=== PATIENT | female | born 1965 | race Two or more races ===

== ENCOUNTER 2024-09-03 09:57 | Outpatient (AMB) | payer MEDICAID, SELFPAY ==
[2024-09-03 10:21] VITALS: BP 108/71; PULSE 92; RESP 18; TEMP 35.9; O2SAT 93; BMI 25.6
--- NOTE | 2024-09-03 10:21 | PD.GSCLVISIT ---
Vital Signs - [facility] 09/03/24 10:21 Height 1.52 m Height Method Stated Weight 59.591 kg Weight Measurement Method Standing Scale BMI 25.6 BP 108/71 Blood Pressure Source Automatic Cuff Blood Pressure Location Right Upper Arm Position Sitting Respiration 18 Pulse 92 Pulse Source Monitor Temp 96.6 F L Temp Source Temporal Artery Scan Pulse Oximetry (%) 93 L Oxygen Delivery Method Room Air Med/Allergies Allergies & Medications Allergies ibuprofen Allergy (Severe, Verified 09/03/24 10:22) Gastrointestinal Upset Medication Reconciliation gabapentin 100 mg capsule 800 mg PO TID 02/15/19 [History Confirmed 09/03/24] albuterol sulfate 90 mcg/actuation aerosol inhaler 2 puff inhalation Q4HR PRN Wheezing 08/19/22 [History Confirmed 09/03/24] buprenorphine 7.5 mcg/hour weekly transdermal patch (Butrans) 7.5 mcg topical QWEEK 05/31/24 [History Confirmed 09/03/24] ergocalciferol (vitamin D2) 1,250 mcg (50,000 unit) capsule 50,000 unit PO QWEEK 05/31/24 [History Confirmed 09/03/24] escitalopram oxalate 10 mg tablet 10 mg PO QDAY 05/31/24 [History Confirmed 09/03/24] fenofibrate 160 mg tablet 160 mg PO DAILY 05/31/24 [History Confirmed 09/03/24] levothyroxine 25 mcg tablet 25 mcg PO QDAY 05/31/24 [History Confirmed 09/03/24] montelukast 10 mg tablet 10 mg PO QPM 05/31/24 [History Confirmed 09/03/24] pantoprazole 40 mg tablet,delayed release 40 mg PO QDAY 05/31/24 [History Confirmed 09/03/24] terbinafine HCl 250 mg tablet 250 mg PO DAILY 05/31/24 [History Confirmed 09/03/24] amitriptyline 75 mg tablet 75 mg PO HS 06/01/24 [History Confirmed 09/03/24] empagliflozin 10 mg tablet (Jardiance) 10 mg PO QAM #30 tabs 06/03/24 [Rx Confirmed 09/03/24] insulin glargine 100 unit/mL (3 mL) subcutaneous pen, sensor (Basaglar Tempo Pen (U-100) Insulin) 10 unit (0.1 mL) subcut QPM #15 mL 06/03/24 [Rx Confirmed 09/03/24] aspirin 81 mg tablet 81 mg PO QDAY 06/12/24 [History Confirmed 09/03/24] docusate sodium 100 mg capsule (Colace) 100 mg PO BID 06/12/24 [History Confirmed 09/03/24] famotidine 40 mg tablet 40 mg PO QDAY 06/12/24 [History Confirmed 09/03/24] furosemide 40 mg tablet 20 mg PO HS Edema 06/12/24 [History Confirmed 09/03/24] losartan 25 mg tablet 25 mg PO HS 06/12/24 [History Confirmed 09/03/24] [id number]-dgo-other [id number] oil 350 mg- 400 mg capsule 1 cap PO BID 06/12/24 [History Confirmed 09/03/24] sucralfate 100 mg/mL oral suspension 5 ml PO BID 06/12/24 [History Confirmed 09/03/24] MA Intake Visit Data Collection New Patient or Established: Established Patient (seen at [facility] within 3 years) Seen by Clinical Staff ONLY (RN/MA): No Pain Present Currently: No Recreation Adviser Required: No PCP or OBGYN visit in last 3 months: Yes Hx Now: No Do You Feel Safe at Home: Yes Authorities Contacted: N/A Smoking Status Smoking Status: Never smoker Immunization / Flu Flu Vaccine in the Last 12 Months: No Flu Vaccine Exclusion Criteria: No Exclusion Criteria Past Medical History Past Medical History NEUROLOGIC: Positive Neurological Disorders, Peripheral Neuropathy, Migraine and Head Trauma; Negative Seizures CARDIAC: Positive Hypercholesterolemia, Hypertension and Hypotension; Negative Cardiac Disorders or Congestive Heart Failure RESPIRATORY: Positive Asthma, Bronchitis (in past) and Pneumonia (took antiotics); Negative Chronic Obstructive Pulmonary Disease (COPD) or Sleep Apnea GASTROINTESTINAL: Positive Gastrointestinal Disorders (gastritis) and Gastroesophageal Reflux Disease; Negative Gall Bladder Disease GENITOURINARY: Negative Genitourinary Disorders or Renal Disease REPRODUCTIVE: Positive Previous Pregnancies (3) MUSCULOSKELETAL: Positive Arthritis, Carpal Tunnel Syndrome and Fibromyalgia ENT: Positive Cataracts and Head Trauma ENDOCRINE: Positive Endocrine Disorders, Diabetes Mellitus Type 2 and Hypothyroidism; Negative Diabetes Mellitus Type 1 HEMATOLOGIC: Negative Blood Disorders or Sickle Cell Disease PSYCHO/SOCIAL: Positive Depression and Anxiety OTHER HISTORY: Positive Falls (04/27/2024) and Chicken Pox; Negative Hospitalization, Autoimmune Disease, Shingles, Blood Transfusions, Anesthesia Reactions, Chemotherapy, Radiation Therapy, MRSA or Cancer Family History FAMILY HISTORY: Positive Family Cardiac Disorders and Family Surgery; Negative Family Psychiatric Problems, Family Respiratory Disorders, Family Gastrointestinal Problems, Family Cancer or Family Anesthesia Reaction Surgical History SURGICAL: Positive Abdominal Surgery and Section (x3); Negative Cardiac Surgery or Endocrine Surgery Social History SMOKING STATUS: Smoking status: Never smoker ALCOHOL: Alcohol Intake: Never HOUSING: Housing: [facility] LIVES WITH: Lives With: Family HPI HPI Narrative 58 y/o F presenting with urinary and rectal incontinence that began nearly 10 years ago. Per patient she has a lack of feeling when using the restroom for urination or BM, that is constant and described as numbness. She reports that she can feel when her bladder is full, however she can not feel when she is urinating and relies on hearing the flow of urine. She denies feeling when having BM, reports accidents and soiling especially when she has a loose BM, and states that she is constantly wearing pads. She takes a stool softener, does not take any fiber Of note, pt underwent MRI 02/2024 which showed severe lumbar disc narrowing. She states she has not had any follow up from her PCP regarding this result PMH: GERD, DM, HTN, Depression, carpal tunnel, hernia, sciatica. PSH: back Surgery 2016 due to bulging disk (pt states it was an emergency, was done in [place] and she has been unable to get the full record), carpel tunnel surgery, Cholecystectomy All: Ibuprofen Meds: stool softner, famotidine, pramaprozole, levothyroxine, amitryptyline, diclofen, escitorpram, baclofen, gabapentin. FHX: Father: DM, HTN, Mother DM, HTN, Social Hx: lives with daughter and 2 dogs, denies smoking tobacco, denies Etoh, reports smoking MJ, denies exercise. ROS Review of Systems Systems Reviewed: All systems reviewed, normal except as documented Constitutional Constitutional: Denies chills, Reports fatigue, Denies fever(s), Denies weight gain and Denies weight loss Eyes Eyes: Denies change in vision ENT Ears, Nose, Mouth, and Throat: Reports dizziness Cardiovascular Cardiovascular: Denies chest pain, Denies dyspnea, Denies leg edema and Denies palpitations Respiratory Respiratory: Denies chest congestion, Denies cough, Denies dyspnea and Denies hemoptysis Gastrointestinal Gastrointestinal: Denies abdominal pain, Reports constipation, Denies excessive flatus and Denies hematochezia Musculoskeletal Musculoskeletal: Reports tingling Neurologic Neurologic: Reports dizziness and Reports tingling Endocrine Endocrine: Reports fatigue and Denies palpitations Objective/Exam Objective Imaging: MRI 02/2024: diffuse lumbar disc narrowing Colonoscopy 2021: multiple polyps, Pathology report: Tubular adenoma, 1 polyp > 1 cm. General General Appearance: alert and cooperative Head Head exam: atraumatic and normocephalic Resp Respiratory exam: Absent respiratory distress Abdominal Abdominal exam: Present soft and normal bowel sounds Assessment & Plan Diagnosis / Problem List (1) Lumbar radiculopathy, chronic: Status: Acute Assessment & Plan: 58F with history of emergency back surgery in 2016 in [place], known lumbar disease demonstrated 02/2024 presenting with saddle anesthesia, urinary and fecal incontinence. I recommended she follow up with her PCP who ordered the MRI to obtain a referral for neurosurgery, as her symptoms are likely related to her known lumbar disease. In the meantime I also recommended she request a follow up with GI as her last colonoscopy was in 2021 and she was advised to have a repeat in 6 months. To potentially help her fecal incontinence now I recommended she increase her water intake to 2-3L per day as tolerated and begin taking metamucil fiber. If she is able to hold off the stool softeners this should hopefully minimize fecal incontinence episodes. Pt expressed understanding and is agreeable to follow up PCP for referral to Dr Sanders (for surveillance colonoscopy and to monitor the metaplasia seen on last EGD) and Neurosurgery for lumbar disc disease Increase water intake to 2-3L per day and add metamucil fiber in powder form Office Procedures GNS Level of Care Nursing/Assessment Patient Status: Established Patient Nursing Assessment/Reassesment: Medication Reconciliation, Update PMH in EMR and Vital Signs Coordination of Care: Complex Care and Chronic Disease 1-5, Education Complex Pt/Fam, Consent,records obtained, informed consent, Results/Orders obtained and Staff clarify orders Established Patient Charge Established Patient Point Assignment: 95 Established Patient Point Charge: EP Level 3 (80-115) Patient Portal Questionaires Social History Living Situation History Housing: [facility] Tobacco History Smoking Status: Never smoker Alcohol History Alcohol Intake: Never Domestic Abuse History Do You Feel Safe at Home: Yes Review of Systems Report any current symptoms Only answer those that you have currently: General Complaints chills: No fatigue: Yes fever(s): No weight gain: No weight loss: No Eyes change in vision: No Ear, Nose, & Throat dizziness: Yes Heart & Circulation chest pain: No shortness of breath: No leg swelling: No rapid, pounding, or irregular heartbeat: No Breathing & Lungs chest congestion: No cough: No coughing up blood: No Digestive System abdominal pain: No constipation: Yes excessive passing of gas: No bright, red blood in stools: No Muscles or Bones tingling: Yes Past Medical History Past Medical History Have you ever been diagnosed with any of the following: Neurological Problems Seizures: No Peripheral Neuropathy: Yes Migraine: Yes Head Trauma: Yes Cardiology Problems Hypercholesterolemia: Yes Congestive Heart Failure: No Hypertension: Yes Hypotension: Yes Respiratory Problems Chronic Obstructive Pulmonary Disease (COPD): No Asthma: Yes Bronchitis: Yes (in past) Pneumonia: Yes (took antiotics) Sleep Apnea: No Stomache/Intestinal Problems Gall Bladder Disease: No Gastroesophageal Reflux Disease: Yes Genital/Urinary Problems Renal Disease: No Reproductive Problems Previous Pregnancies: Yes (3) Musculoskeletal Problems Arthritis: Yes Carpal Tunnel Syndrome: Yes Fibromyalgia: Yes Head,Eye,Nose,Throat Problems Cataracts: Yes Endocrine Problems Diabetes Mellitus Type 1: No Diabetes Mellitus Type 2: Yes Hypothyroidism: Yes Blood Problems Sickle Cell Disease: No Psychologic Problems Depression: Yes Anxiety: Yes Other Problems Hospitalization: No Autoimmune Disease: No Shingles: No Falls: Yes (04/27/2024) Blood Transfusions: No Anesthesia Reactions: No Chemotherapy: No Radiation Therapy: No MRSA: No Chicken Pox: Yes Cancer: No
== END 2024-09-03 11:23 | disposition home or self-care (01) ==
PROVIDERS: PCP Registered Nurse Community Health; Referring Provider Registered Nurse Community Health; Supervising Provider Surgery; Visit Provider Surgery
DX: M54.16 Radiculopathy, lumbar region (principal); R32 Unspecified urinary incontinence; R15.9 Full incontinence of feces
CPT/HCPCS: 99213; G0463

== ENCOUNTER → 2024-11-20 | Outpatient (BNVA) | payer MEDICAID, SELFPAY | END | disposition home or self-care (01) | PROVIDERS: PCP Registered Nurse Community Health; Referring Provider Registered Nurse Community Health; Visit Provider Urology | DX: N39.46 Mixed incontinence (principal); N39.0 Urinary tract infection, site not specified; R15.9 Full incontinence of feces | CPT/HCPCS: 51701; 81003; 99212; G0463 ==

== ENCOUNTER → 2025-05-27 | Outpatient (CLI) | payer MEDICAID, SELFPAY ==
--- NOTE | 2025-05-27 13:03 | XR_ITS ---
EXAMINATION: Cervical spine, 5 views Technique: Cervical spine AP, AP odontoid, lateral, bilateral obliques, 5 views Exam date and time: May 27, 2025 1314 hours INDICATIONS: Neck pain one month radiating to the hand weakness in the hands FINDINGS: Minimal anterolisthesis C4 on C3 Advanced degenerative disc disease C4-C5, C5-C6, C6-C7 No cervical fracture Moderate bilateral neural foraminal stenosis at the C4-C7 levels Intact odontoid IMPRESSION: Advanced degenerative disc disease C4-C5, C5-C6, C6-C7
--- NOTE | 2025-05-27 13:03 | XR_ITS ---
Examination: Bilateral hands, 6 views. Technique: AP, Oblique, Lateral each hand total 6 views Date and time of exam: May 27, 2025 1314 hours INDICATIONS: Bilateral hand pain and weakness beginning one month ago. FINDINGS: Severe osteopenia No fracture or dislocation involving either hand No change involving either hand. Soft tissue vascular calcification Mild bilateral osteoarthritis radiocarpal and first carpometacarpal joints Impression: Severe osteopenia No erosive arthritis Mild bilateral osteoarthritis radiocarpal and first carpal metacarpal joint
== END | disposition home or self-care (01) ==
LOC: CDIM 12:23
PROVIDERS: PCP Registered Nurse Community Health; Referring Provider Registered Nurse Community Health; Visit Provider Registered Nurse Community Health
DX: M50.321 Other cervical disc degeneration at C4-C5 level (principal); M19.042 Primary osteoarthritis, left hand; M19.041 Primary osteoarthritis, right hand
CPT/HCPCS: 72050; 73130

== ENCOUNTER 2025-07-08 22:30 | Inpatient (IN) | payer MEDICAID, SELFPAY ==
--- NOTE | 2025-07-08 22:30 | PD.EDAMS ---
Altered Mental Status RME/HPI General Chief Complaint: Altered Mental Status Stated Complaint: ALTERED Time Seen by Provider: 07/08/25 22:47 Arrival date/time: 07/08/25 22:30 RME / HPI RME / HPI narrative: See MDM for Dr. Coley's HPI documentation. Related Data Home Medications ?Medication ?Instructions ?Recorded ?Confirmed gabapentin 100 mg capsule 800 mg PO TID 02/15/19 11/20/24 albuterol sulfate 90 mcg/actuation 2 puff inhalation Q4HR PRN Wheezing 08/19/22 11/20/24 aerosol inhaler ergocalciferol (vitamin D2) 1,250 50,000 unit PO QWEEK 05/31/24 11/20/24 mcg (50,000 unit) capsule escitalopram oxalate 10 mg tablet 10 mg PO QDAY 05/31/24 11/20/24 fenofibrate 160 mg tablet 160 mg PO DAILY 05/31/24 11/20/24 levothyroxine 25 mcg tablet 25 mcg PO QDAY 05/31/24 11/20/24 montelukast 10 mg tablet 10 mg PO QPM 05/31/24 11/20/24 pantoprazole 40 mg tablet,delayed 40 mg PO QDAY 05/31/24 11/20/24 release amitriptyline 75 mg tablet 75 mg PO HS 06/01/24 11/20/24 aspirin 81 mg tablet 81 mg PO QDAY 06/12/24 11/20/24 Held on 06/12/24. Instructions: Resume on 06/14/24. RESUME MEDICATION ON THIS DATE AT YOUR USUAL TIME docusate sodium 100 mg capsule 100 mg PO BID 06/12/24 11/20/24 (Colace) famotidine 40 mg tablet 40 mg PO QDAY 06/12/24 11/20/24 losartan 25 mg tablet 25 mg PO HS 06/12/24 11/20/24 [id number]-[id number] nwcwn2m-[id number] 1 cap PO BID 06/12/24 11/20/24 oil 350 mg-400 mg capsule sucralfate 100 mg/mL oral 5 ml PO BID 06/12/24 11/20/24 suspension estradiol 0.01% (0.1 mg/gram) 2 g vaginal QDAY 11/20/24 11/20/24 vaginal cream (Estrace) insulin degludec 100 unit/mL (3 30 unit subcut QHS 11/20/24 11/20/24 mL) subcutaneous pen (Tresiba FlexTouch U-100 insulin) nitrofurantoin 100 mg PO BID 11/20/24 11/20/24 monohydrate/macrocrystals 100 mg capsule (Macrobid) Allergies Allergy/AdvReac Type Severity Reaction Status Date / Time ibuprofen Allergy Severe Gastrointestinal Verified 11/20/24 09:43 Upset Review of Systems Review of Systems ROS Unobtainable: unobtainable due to mental status Past Medical History Past Medical History NEUROLOGIC: Positive Neurological Disorders, Peripheral Neuropathy, Migraine and Head Trauma; Negative Seizures CARDIAC: Positive Hypercholesterolemia, Hypertension and Hypotension; Negative Cardiac Disorders or Congestive Heart Failure RESPIRATORY: Positive Asthma, Bronchitis (in past) and Pneumonia (took antiotics); Negative Chronic Obstructive Pulmonary Disease (COPD) or Sleep Apnea GASTROINTESTINAL: Positive Gastrointestinal Disorders (gastritis) and Gastroesophageal Reflux Disease; Negative Gall Bladder Disease GENITOURINARY: Negative Genitourinary Disorders or Renal Disease REPRODUCTIVE: Positive Previous Pregnancies (3) MUSCULOSKELETAL: Positive Musculoskeletal Disorders, Arthritis, Carpal Tunnel Syndrome and Fibromyalgia ENT: Positive Cataracts and Head Trauma ENDOCRINE: Positive Endocrine Disorders, Diabetes Mellitus Type 2 and Hypothyroidism; Negative Diabetes Mellitus Type 1 HEMATOLOGIC: Negative Blood Disorders or Sickle Cell Disease PSYCHO/SOCIAL: Positive Depression and Anxiety OTHER HISTORY: Positive Falls (04/27/2024) and Chicken Pox; Negative Hospitalization, Autoimmune Disease, Shingles, Blood Transfusions, Anesthesia Reactions, Chemotherapy, Radiation Therapy, MRSA or Cancer Family History FAMILY HISTORY: Positive Family Cardiac Disorders and Family Surgery; Negative Family Psychiatric Problems, Family Respiratory Disorders, Family Gastrointestinal Problems, Family Cancer or Family Anesthesia Reaction Surgical History SURGICAL: Positive Abdominal Surgery and Section (x3); Negative Cardiac Surgery or Endocrine Surgery Social History SMOKING STATUS: Never smoker ED Exam Narrative Physical exam: See MDM for Dr. Coley's physical exam documentation. Course Course Course Narrative: 2233: Stroke alert initiated. Quality Measures none Orders Category Date Time Status Bedside Blood Glucose NOW Care 07/08/25 22:32 Active Bedside Blood Glucose NOW Care 07/09/25 03:00 Active Bedside COVID-19 Antigen Test NOW Care 07/08/25 22:34 Active Bedside Influenza A&B Antigen Test NOW Care 07/08/25 22:34 Completed Blood glucose [Bedside Blood Glucose] NOW Care 07/09/25 02:08 Active COVID-19 Screening Questionnaire NOW Care 07/09/25 01:04 Active School Counsellor NOW Care 07/08/25 22:32 Active Continuous Pulse Oximetry NOW Care 07/08/25 22:32 Completed Decision to Admit X1 Care 07/09/25 01:04 Completed EKG (ED ONLY) *Do not use* NOW Care 07/08/25 22:32 Completed Insert IV NOW Care 07/08/25 22:32 Active NIH Stroke Scale now Care 07/08/25 22:32 Active NPO NOW Care 07/08/25 22:32 Active Nurse Swallow Screen x1 Care 07/08/25 22:32 Active Straight [In and Out Catheter] X1 Care 07/08/25 22:34 Completed Consult to Neurology / Tele-Neurology Routine Cons 07/08/25 22:[address] angio stroke protocol Stat Exams 07/08/25 22:[address] cervical spine wo con Stat Exams 07/08/25 22:[address] chest abdomen pelvis wo Stat Exams 07/08/25 22:[address] facial bones wo con Stat Exams 07/08/25 22:[address] stroke protocol Stat Exams 07/08/25 22:32 Completed EKG (ED Only) Stat Exams 07/08/25 22:32 Draft XR chest 1V portable Stat Exams 07/08/25 22:32 Completed Alcohol, Blood Medical Stat Lab 07/08/25 23:11 Completed Ammonia Stat Lab 07/08/25 23:11 Completed Amylase Stat Lab 07/08/25 23:11 Completed Arterial Blood Gas Stat Lab 07/08/25 22:32 Completed BNP [B-Type Natriuretic Peptide] Stat Lab 07/08/25 23:11 Completed Beta Hydroxybutyrate Stat Lab 07/08/25 23:11 Completed Bilirubin,Direct Stat Lab 07/08/25 23:11 Completed Blood Culture (Lab) Stat Lab 07/08/25 23:16 Received CBC Stat Lab 07/08/25 23:11 Completed CK [Creatine Kinase] Stat Lab 07/08/25 23:11 Completed CRP [C-Reactive Protein] Stat Lab 07/08/25 23:11 Completed Comprehensive Metabolic Panel Stat Lab 07/08/25 23:11 Completed Drug Screen,Urine Stat Lab 07/08/25 23:24 Completed ESR [Sed Rate (ESR)] Stat Lab 07/08/25 23:11 Completed Lactate (Lactic Acid) Stat Lab 07/08/25 23:11 Completed Lipase Stat Lab 07/08/25 23:11 Completed Magnesium Stat Lab 07/08/25 23:11 Completed Partial Thromboplastin Time Stat Lab 07/08/25 23:11 Completed Phosphorous Stat Lab 07/09/25 02:07 Ordered Procalcitonin Stat Lab 07/08/25 23:11 Completed Prothrombin Time with INR Stat Lab 07/08/25 23:11 Completed Renal Function Panel Q4 Lab 07/09/25 02:15 Ordered Renal Function Panel Q4 Lab 07/09/25 06:15 Ordered Renal Function Panel Q4 Lab 07/09/25 10:15 Ordered Renal Function Panel Q4 Lab 07/09/25 14:15 Ordered Renal Function Panel Q4 Lab 07/09/25 18:15 Ordered Renal Function Panel Q4 Lab 07/09/25 22:15 Ordered TSH [Thyroid Stimulating Hormone] Stat Lab 07/08/25 23:11 Completed Troponin I Stat Lab 07/08/25 23:11 Completed Urinalysis, C/S if Indicated Stat Lab 07/08/25 23:24 Completed Urine Culture Stat Lab 07/08/25 23:24 Received VBG [Venous Blood Gas] Stat Lab 07/09/25 02:12 Ordered Ondansetron Inj [Zofran Inj] Med 07/08/25 22:32 Active 4 mg IVP Q4HR PRN Sodium Chloride 0.9% 1000 ml [Ns] 1,000 ml Med 07/08/25 22:45 Active IV Q10H Thiamine Inj [Vitamin B-1 Inj] 500 mg Med 07/09/25 02:05 Active Sodium Chloride 0.9% [Ns] 100 ml IV X1 cefTRIAXone/D5w 1gm IV premix [Rocephin/D5w 1gm IV Med 07/08/25 23:49 Discontinued premix] 1 g in 50 ml IV X1 Oxygen Delivery NOW RT 07/08/25 22:32 Active Vital Signs Vital signs: Vital Signs Temperature 97.8 F 07/08/25 22:31 Pulse Rate 99 07/08/25 22:31 Respiratory Rate 18 07/08/25 22:31 Blood Pressure 135/81 H 07/08/25 22:31 Pulse Oximetry (%) 95 07/08/25 22:31 Oxygen Delivery Method Room Air 07/08/25 22:31 Altered Mental Status MDM Narrative MDM Narrative:: This section includes all my notes and documentations, including HPI, PE, and ED course. Ariel Coley MD HPI: 59yo female with history of DM, HTN, HLD BIBA from home with altered mental status. Patient was last seen to be her usual self at Noon, 10 to 11 hours ago. Can't obtain any history from the patient. She keeps answer her name with all questions from me. Daughter not present. ROS: Can't obtain from the patient due to AMS. Physical Exam: General: Lethargic. Oriented X 1 (person). Eyes: Conjunctivae and lids clear. PERRL. EOMI. ENT: No nasal congestion. Neck: Supple. No carotid bruit. No JVD. Heart: Sinus tachycardia noted. Lungs: No respiratory distress. Good air movement. No rhonchi, wheezing, rales. Abdomen: Soft and nontender. Normal bowel sounds. No distension. No rebound or guarding. Skin: Warm and dry. Left facial ecchymoses noted, appears to be several days old. Neuro: Cranial nerves II to XII grossly normal. Equivocal motor deficits bilaterally. I reviewed EMS notes. I reviewed all diagnostic test results. My interpretation of the EKG is sinus tachycardia with nonspecific ST-T changes. My interpretation of the chest x-ray is NAD. My review of the CT head report is NAD. My review of the CT angio head/neck report is NAD. My review of the CT facial bones report is NAD. My review of the CT chest abdomen pelvis report is NAD. My review of the CT cervical spine report is NAD. Blood tests remarkable for WBC 13.6, ESR 34, Beta Hydroxybutyrate 5.8. ABG showed pH 7.29, pCO2 37, pHCO3 18. UA remarkable for 4+ bacteria. UDS positive for marijuana. At this point, diagnoses include: Altered mental status Sepsis UTI Metabolic acidosis Treatment here included: IV fluid Zofran Rocephin Patient remained stable. I discussed the case with our teleneurologist and hospitalist. About the presentation and exam and diagnostics and treatments here. And need of further care in the hospital. Will accept the patient. Ariel Coley MD Patient data External records reviewed:: [facility] previous records and EMS form Clinical information provided by:: EMS Social determinants that could affect healthcare access:: none Patient has the following chronic illnesses:: DM, HTN, HLD How is presenting disease/condition affected by chronic disease/condition?: exacerbated by Evaluation data The following diagnostics were reviewed and interpreted by me:: lab results, radiology exam(s) and EKG tracing(s) (My interpretation of the EKG is: Sinus tachycardia (109 bpm) with nonspecific ST-T changes. Ariel Coley MD) Lab and/or radiology exams considered but not ordered:: none Interpretation Summary: I reviewed all diagnostic test results. My interpretation of the EKG is sinus tachycardia with nonspecific ST-T changes. My interpretation of the chest x-ray is NAD. My review of the CT head report is NAD. My review of the CT angio head/neck report is NAD. My review of the CT facial bones report is NAD. My review of the CT chest abdomen pelvis report is NAD. My review of the CT cervical spine report is NAD. Blood tests remarkable for WBC 13.6, ESR 34, Beta Hydroxybutyrate 5.8. ABG showed pH 7.29, pCO2 37, pHCO3 18. UA remarkable for 4+ bacteria. UDS positive for marijuana. Medications / Prescriptions Medications or Prescriptions considered but not ordered:: none Medication administrations:: Medication Administration History Sodium Chloride (Ns) 1,000 mls @ 100 mls/hr IV Q10H GEORGES Stop: 08/07/25 22:44 Last Admin: 07/08/25 23:14 Dose: 100 mls/hr Documented By: ANA PAULA Thiamine HCl 500 mg/ Sodium (Chloride) 105 mls @ 205 mls/hr IV X1 ONE Stop: 07/09/25 02:35 Last Admin: 07/09/25 02:18 Dose: 205 mls/hr Documented By: TEODORA Ondansetron HCl (Ondansetron Inj 2 Mg/Ml Inj 2 Ml) 4 mg IVP Q4HR PRN PRN Reason: NAUSEA OR VOMITING Stop: 08/07/25 22:31 Last Admin: 07/08/25 23:14 Dose: 4 mg Documented By: ANA PAULA Discontinued Medications Ceftriaxone Sodium/Dextrose (Rocephin/D5w 1gm Iv Premix) 1 g in 50 mls @ 100 mls/hr IV X1 ONE Stop: 07/09/25 00:18 Last Infusion: 07/09/25 01:08 Dose: Infused Documented By: Admin: 07/09/25 00:16 Dose: 100 mls/hr Documented By: TEODORA IV fluid, Zofran, Rocephin Consultations Consultation(s) initiated? (list below): Yes Consultation #1 (Physician, Specialty, Details): I discussed the case with our teleneurologist and hospitalist. About the presentation and exam and diagnostics and treatments here. And need of further care in the hospital. Will accept the patient. Diagnosis Differential diagnosis altered mental status: alcoholic intoxication, altered mental status, delirium, dementia, hypoglycemia, hyponatremia, subarachnoid hemorrhage and sepsis Most likely diagnosis given after review of the tests above:: At this point, diagnoses include: Altered mental status Sepsis UTI Metabolic acidosis Admission Indicated Admission indicated?: indicated Explain why admission is indicated or not indicated:: Altered mental status Admission Request Was there a request for admission?: Yes Admission Attestation Admission request attestation: Discussed case with Hospitalist service regarding admission. Discussed patients ED course, exam findings, labs, and radiology results. The Hospitalist [agrees] to accept the patient for admission. Disposition Plan Disposition Plan: Admit Critical Care Time Critical Care Time Critical Care Time: Yes Total Critical Care Time (min.): 36 Attestation: Due to a high probability of clinically significant, life threatening deterioration, the patient required my highest level of preparedness to intervene emergently and I personally spent this critical care time directly and personally managing the patient. This critical care time included obtaining a history; examining the patient; ordering and review of studies; arranging urgent treatment with development of a management plan; evaluation of patient's response to treatment; frequent reassessment; and discussions with family and other providers. It was exclusive of separately billable procedures and treating other patients and teaching time. Ariel Coley MD Discharge Plan Plan Patient Disposition: Admit Acute Care w/in Hospital Prescriptions/Referrals Prescriptions/Med Rec: No Action insulin degludec [Tresiba FlexTouch U-100] 100 unit/mL (3 mL) insulin pen 30 unit subcut QHS estradiol [Estrace] 0.01 % (0.1 mg/gram) cream 2 g vaginal QDAY Rx Instructions: twice a week nitrofurantoin monohyd/m-cryst [Macrobid] 100 mg capsule 100 mg PO BID Rx Instructions: must administer with a meal/food gabapentin 100 mg Capsule 800 mg PO TID sucralfate 100 mg/mL Suspension 5 ml PO BID Rx Instructions: swish in mouth and swallow; use after food/drink famotidine 40 mg Tablet 40 mg PO QDAY losartan 25 mg Tablet 25 mg PO HS docusate sodium [Colace] 100 mg Capsule 100 mg PO BID aspirin 81 mg Tablet 81 mg PO QDAY lvryh-[id number]-[id number]-epa-fish oil 350-400 mg Capsule 1 cap PO BID albuterol sulfate 90 mcg/actuation HFA aerosol inhaler 2 puff INHALATION Q4HR PRN (Reason: Wheezing) levothyroxine 25 mcg Tablet 25 mcg PO QDAY pantoprazole 40 mg Tablet,Delayed Release (Dr/Ec) 40 mg PO QDAY montelukast 10 mg Tablet 10 mg PO QPM ergocalciferol (vitamin D2) 1,250 mcg (50,000 unit) Capsule 50,000 unit PO QWEEK escitalopram oxalate 10 mg Tablet 10 mg PO QDAY fenofibrate 160 mg Tablet 160 mg PO DAILY amitriptyline 75 mg tablet 75 mg PO HS Problem List Clinical Impression: Altered mental status, Sepsis, UTI (urinary tract infection), Metabolic acidosis Patient/Caregiver Discharge Instructions Print Language: Wolof Stand Alone Forms: [employer] Award Info., Patient Portal Info Letter
[2025-07-08 22:31] VITALS: BP 135/81; PULSE 99; RESP 18; TEMP 36.6; O2SAT 95
--- NOTE | 2025-07-08 22:32 | XR_ITS ---
Examination: CTA carotids with intravenous contrast CTA brain, head with intravenous contrast. 2-D sagittal, coronal reconstructions. 3-D reconstructions. Exam date and time: July 08, 2025 10:59 PM Indications: Stroke alert, onset focal neurologic deficit today CTDI: vol (mGy) 11.5 DLP: (mGycm) 402 Technique: Multiple CTA axial brain, head carotid images post intravenous contrast injection 75 cc, [id number]. 2-D sagittal, coronal reconstructions. 3-D reconstructions, 3-D post processing including vascular maximum intensity projection images. Low dose protocols were performed. One or more of the following dose reduction techniques were used; automated exposure control, adjustment of the mA and/or KV according to patient size, use of iterative reconstruction technique. Findings: No significant common carotid carotid bifurcation or internal carotid artery stenoses Codominant vertebral arteries with no critical stenoses No cerebral large vessel arterial occlusions or thrombus Impression: No significant neck arterial stenoses No cerebral large vessel arterial occlusions or thrombus
--- NOTE | 2025-07-08 22:32 | XR_ITS ---
Examination: CT brain head without contrast. 2-D sagittal coronal reconstructions Date and time of exam:July 08, 2025 10:42 PM, comparison December 12, 2019. Indications: Stroke alert, onset focal neurologic deficit today. CTDI: vol (mGy):45.6. DLP: (mGycm):860 Technique: Multiple CT axial sections of the brain have been obtained, 5 mm slice thickness. Contrast has not been administered. 2-D sagittal, coronal reconstructions have been obtained Low dose protocols were performed. One or more of the following dose reduction techniques were used; automated exposure control, adjustment of the mA and/or KV according to patient size, use of iterative reconstruction technique. Findings: No significant ventricular enlargement. Intra-axial or extra-axial hemorrhage density is not seen. No mass effect or midline shift Basal cisterns are not remarkable. Fourth ventricle is midline. Cranial vault intact. Impression: Negative for acute hemorrhage, mass effect or midline shift
--- NOTE | 2025-07-08 22:32 | EKG_ITS ---
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
--- NOTE | 2025-07-08 22:32 | XR_ITS ---
Examination: AP chest single view Technique one AP portable upright chest single view Date and time: July 08, 2025 1125 hrs. Indications: Stroke alert today Findings: Normal heart size. No aspiration pneumonia. Moderate osteopenia Impression: No aspiration pneumonia.
--- NOTE | 2025-07-08 22:33 | XR_ITS ---
Examination: CT chest, without intravenous contrast. CT abdomen, without intravenous contrast. CT pelvis, without intravenous contrast. 2-D sagittal and coronal reconstructions. 3-D reconstructions. Date and time of exam:July 08, 2025 1058 hrs. Indications: Injury to the chest and abdomen, chest pain abdomen pain CTDI vol (mgy) 11 DLP (MGycm)782 Technique: Multiple CT images, 3.0 mm slice thickness, obtained chest, abdomen, pelvis, with the high-resolution 64 slice scanner.. Sagittal and coronal 2-D reconstructions are obtained. 3-D reconstructions Low dose protocols were performed. One or more of the following dose reduction techniques were used; automated exposure control, adjustment of the mA and/or KV according to patient size, use of iterative reconstruction technique. Findings: Thoracic aorta pulmonary arteries intact Minimal pericardial effusion 4 mm pulmonary nodule left upper lobe No pneumothorax pulmonary contusion or hemothorax The manubrium the body the sternum intact No thoracic lumbar or sacral fracture Ribs appear intact No liver splenic or renal laceration. Abdominal aorta intact. No free blood in the abdomen. Absent gallbladder Negative for pneumoperitoneum Normal appendix Atrophic uterus Urinary bladder intact Air in the urinary bladder Hips bones of the pelvis intact Impression: Thoracic aorta pulmonary arteries intact 4 mm pulmonary nodule left upper lobe, recommend 6 month follow-up CT chest without contrast No pneumothorax pulmonary contusion or hemothorax No abdominal parenchymal laceration. Aorta intact, no free blood in the abdomen or pelvis
--- NOTE | 2025-07-08 22:33 | XR_ITS ---
Examination: CT maxillofacial, without intravenous contrast. 2-D sagittal reconstructions. 3-D reconstructions. Date and time of exam:July 08, 2025 1052 hrs. Indications: Altered mental status facial pain post injury today CTDI: vol (mGy):27.7 DLP: (mGycm):427 Technique: Multiple axial images of maxillofacial region, 3.0 mm slice thickness. 2-D sagittal and coronal reconstructions. 3-D reconstructions. Low dose protocols were performed. One or more of the following dose reduction techniques were used; automated exposure control, adjustment of the mA and/or KV according to patient size, use of iterative reconstruction technique. Findings: Frontal bones intact Orbital rims intact No depression zygomatic arches. Pterygoid plates maxilla and the mandible intact Impression: No acute facial fracture.
--- NOTE | 2025-07-08 22:33 | XR_ITS ---
Examination: CT cervical spine without contrast 2-D sagittal reconstructions 2-D coronal reconstructions 3-D reconstructions. Exam date and time:July 08, 2025 10:52 PM Indications: Ground-level fall today with injury to the neck, neck pain CTDI:vol (mGy) 16 DLP: (mGycm) reversal normal cervical lordosis Technique: Multiple 2 mm axial sections of the cervical spine have been obtained. The coronal and sagittal reconstructions have been obtained. 3-D reconstructions have been obtained. Low dose protocols were performed. One or more of the following dose reduction techniques were used; automated exposure control, adjustment of the mA and/or KV according to patient size, use of iterative reconstruction technique. Findings: Axial sections demonstrate intact base of the skull. 200 and C1 exhibit satisfactory relationship to the odontoid. No acute cervical vertebral body fracture seen. Alignment posterior spinous processes satisfactory. Impression: No acute cervical fracture.
[2025-07-08 22:39] VITALS: PULSE 107; PULSE 108; RESP 18; O2SAT 95; BMI 26.5
[2025-07-08 23:10] VITALS: PULSE 107; RESP 20; O2SAT 97
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
[2025-07-08] MEDS: ONDANSETRON INJ 2 MG/ML INJ 2 ML 4 MG IVP (23:14)
[2025-07-08] MEDS: SODIUM CHLORIDE 0.9% 1000 ML 1,000 ML 100 ML IV (23:14)
[2025-07-08 23:23] LABS: Lactate (Lactic Acid) 1.8 mMol/L (0.4-2.0)
[2025-07-08 23:26] LABS: Basophils # (Auto) 0.1 Thou/mm3 (0.0-0.2); Basophils % (Auto) 0 % (0-2.5); Eosinophils # (Auto) 0.0 Thou/mm3 (0.0-0.5); Eosinophils % (Auto) 0 % (0-10); Hematocrit 39.9 % (36.0-46.0); Hemoglobin 12.8 g/dL (12.0-16.0); Immature Granulocytes Auto 0.10 Thou/mm3 (0.00-0.00); Lymphocytes # (Auto) 3.3 Thou/mm3 (1.0-4.8); Lymphocytes % (Auto) 24 % (10-50); Mean Corpuscular HGB Conc 32.1 g/dl (31.0-37.0); Mean Corpuscular Hemoglobin 30.8 pg (25.0-35.0); Mean Corpuscular Volume 96 fL (80-100); Monocytes # (Auto) 0.9 Thou/mm3 (0.0-0.8); Monocytes % (Auto) 7 % (0-12); Neutrophils # (Auto) 9.2 Thou/mm3 (1.8-7.7); Neutrophils % (Auto) 68 % (37-80); Nucleated Red Blood Cell # 0.00 Thou/mm3 (0.00-0.00); Nucleated Red Blood Cell % 0 /100 WBC (0); Platelet Count 357 Thou/mm3 (140-440); RDW Standard Deviation 47.8 fL (36.4-46.3); Red Blood Count 4.16 Miln/mm3 (4.00-5.20); White Blood Count 13.6 Thou/mm3 (3.6-11.0)
[2025-07-08 23:29] LABS: Base Excess -8 (-3-3); HCO3 18 mEq/L (20-26); Inspired Oxygen, FIO2 21 %; O2 Saturation 95 % (91-98); PCO2 37 mmHg (32.0-48.0); PO2 96 mmHg (83-108); pH, Arterial 7.29 (7.35-7.45)
[2025-07-08 23:29] LABS: Beta Hydroxybutyrate 5.8 mmol/L (<0.6)
[2025-07-08 23:30] LABS: Collection Type, Urine Clean Catch
[2025-07-08 23:32] LABS: Allen Test Performed/OK; Puncture Site Right Radial
[2025-07-08 23:41] LABS: Sed Rate (ESR) 34 mm/hr (0-30)
[2025-07-08 23:43] LABS: Ammonia 11 uMol/L (11-32)
[2025-07-08 23:44] LABS: Bacteria,Urine 4+; Bilirubin,Urine Negative (Negative); Blood,Urine Negative (Negative); Clarity,Urine Clear (Clear/Hazy); Color,Urine Colorless (Lt Yel-Yel); Glucose, Urine 4+ (Negative); Ketones,Urine 3+ (Negative); Leukocyte Esterase,Urine Negative (Negative); Nitrite,Urine Negative (Negative); PH,Urine 5.5 (5.0-7.0); Protein,Urine Negative (Neg - Trace); RBC,Urine < 1 /hpf (0-3); Squamous Epithelial Cell,Urine 2 /hpf (0-5); Urobilinogen,Urine Negative mg/dL (0.0-1.0); WBC,Urine 2 /hpf (0-5)
[2025-07-08 23:45] LABS: INR 1.1 (0.9-1.3); Partial Thromboplastin Time 21.9 Seconds (22.0-36.0); Prothrombin Time 11.6 Seconds (9.0-12.2)
[2025-07-08 23:47] LABS: Amphetamine/Methamp Scrn,U Negative (Negative); Barbiturate Screen,Urine Negative (Negative); Benzodiazepines Screen,Urine Negative (Negative); Benzoylecgonine Screen, Ur Negative (Negative); Fentanyl Screen,Urine Negative (Negative); Opiate Screen,Urine Negative (Negative); THC Screen,Urine Positive (Negative)
[2025-07-08 23:48] LABS: Culture Indicated,Urine Yes; Specific Gravity,Urine < 1.005 (1.001-1.035)
[2025-07-08 23:57] LABS: Alanine Aminotransferase 38 U/L (10-49); Albumin, Serum 3.8 gm/dL (3.4-4.8); Albumin/Globulin Ratio 1.3 (1.2-2.2); Alcohol, Blood Medical < 3.0 mg/dL (0-10.0); Alkaline Phosphatase 56 U/L (46-116); Amylase 31 U/L (30-118); Anion Gap 22 (7-16); Aspartate Amino Transferase 30 U/L (0-34); B-Type Natriuretic Peptide 26 pg/mL (0-100); BUN/Creatinine Ratio 29 Ratio (12-20); Bilirubin,Direct 0.2 mg/dL (0.0-0.3); Bilirubin,Total 0.5 mg/dL (0.3-1.2); Blood Urea Nitrogen 23 mg/dL (9-23); C-Reactive Protein < 0.5 mg/dL (0.0-0.9); Calcium 9.0 mg/dL (8.3-10.6); Calcium (Corrected) 9.2 mg/dL (8.5-10.1); Carbon Dioxide 17.5 mMol/L (20.0-31.0); Chloride 103 mMol/L (98-107); Creatine Kinase 39 U/L (34-171); Creatinine (Component) 0.8 mg/dL (0.6-1.3); Estimated Creatinine Clearance 61.4 mL/min (>60); Globulin 2.9 gm/dL (2.3-3.5); Glucose 140 mg/dL (74-106); Lipase 15 U/L (12-53); Magnesium 1.7 mg/dL (1.6-2.6); Osmolality,Calculated 288 (275-295); Potassium 4.4 mMol/L (3.4-5.1); Procalcitonin < 0.04 ng/ml (0.0-0.49); Sodium 142 mMol/L (136-145); Thyroid Stimulating Hormone 2.07 uIU/mL (0.55-4.78); Total Protein 6.7 gm/dL (5.7-8.2); Troponin I < 0.020 ng/mL (0.0-0.045); eGFR > 60 See Note
[2025-07-09] VITALS (13 sets, daily range): BP systolic 106–144; BP diastolic 67–86; PULSE 93–113; RESP 13–19; TEMP 35.9–37.1; O2SAT 92–97; BMI 25.9; BMI 26.1
[2025-07-09] MEDS: cefTRIAXone/D5w 1gm IV premix 1 G/50 ML BAG IV (00:16)
[2025-07-09] MEDS: THIAMINE INJ 500 MG in SODIUM CHLORIDE 0.9% 100 ML 205 MG IV (02:18)
[2025-07-09 02:57] LABS: Base Excess, Venous -4 (-3-3); O2 Saturation, Venous 92 % (96-97); PCO2, Venous 37 mmHg (36-56); PO2, Venous 70 mmHg (15-58); pH, Venous 7.36 (7.33-7.66)
--- NOTE | 2025-07-09 02:58 | XR_ITS ---
Examination: Bilateral lower legs 3 views Technique one AP bilateral lower legs, right and left lateral lower legs total 3 views Date and time: July 09, 2025, 0357 hrs. Indications: Pain in the legs today. Findings: Moderate osteopenia. No fracture or dislocation involving either lower leg. No cortical bone destruction. Soft tissue vascular calcification. Impression: No fracture or dislocation, no cortical bone obstruction involving either lower leg.
[2025-07-09 03:19] LABS: Albumin, Serum 4.0 gm/dL (3.4-4.8); Anion Gap 19 (7-16); BUN/Creatinine Ratio 24 Ratio (12-20); Blood Urea Nitrogen 17 mg/dL (9-23); Calcium 9.1 mg/dL (8.3-10.6); Calcium (Corrected) 9.1 mg/dL (8.5-10.1); Carbon Dioxide 20.4 mMol/L (20.0-31.0); Chloride 106 mMol/L (98-107); Creatinine (Component) 0.7 mg/dL (0.6-1.3); Estimated Creatinine Clearance 70.1 mL/min (>60); Glucose 110 mg/dL (74-106); Osmolality,Calculated 291 (275-295); Phosphorous 4.1 mg/dL (2.4-5.1); Potassium 4.0 mMol/L (3.4-5.1); Sodium 145 mMol/L (136-145); eGFR > 60 See Note
[2025-07-09] MEDS: Magnesium Sulfate 2 GM Ivpb 2 GM/50 ML BAG IV (03:31)
[2025-07-09] MEDS: DEXTROSE 5%-NS 1,000 ML 100 ML IV (03:32)
[2025-07-09 04:05] LABS: Basophils # (Auto) 0.1 Thou/mm3 (0.0-0.2); Basophils % (Auto) 1 % (0-2.5); Eosinophils # (Auto) 0.1 Thou/mm3 (0.0-0.5); Eosinophils % (Auto) 0 % (0-10); Hematocrit 39.4 % (36.0-46.0); Hemoglobin 12.9 g/dL (12.0-16.0); Immature Granulocytes Auto 0.08 Thou/mm3 (0.00-0.00); Lymphocytes # (Auto) 3.1 Thou/mm3 (1.0-4.8); Lymphocytes % (Auto) 25 % (10-50); Mean Corpuscular HGB Conc 32.7 g/dl (31.0-37.0); Mean Corpuscular Hemoglobin 31.1 pg (25.0-35.0); Mean Corpuscular Volume 95 fL (80-100); Monocytes # (Auto) 0.9 Thou/mm3 (0.0-0.8); Monocytes % (Auto) 7 % (0-12); Neutrophils # (Auto) 8.1 Thou/mm3 (1.8-7.7); Neutrophils % (Auto) 66 % (37-80); Nucleated Red Blood Cell # 0.02 Thou/mm3 (0.00-0.00); Nucleated Red Blood Cell % 0 /100 WBC (0); Platelet Count 377 Thou/mm3 (140-440); RDW Standard Deviation 46.5 fL (36.4-46.3); Red Blood Count 4.15 Miln/mm3 (4.00-5.20); White Blood Count 12.3 Thou/mm3 (3.6-11.0)
[2025-07-09 04:24] LABS: Alanine Aminotransferase 37 U/L (10-49); Albumin, Serum 4.0 gm/dL (3.4-4.8); Albumin/Globulin Ratio 1.3 (1.2-2.2); Alkaline Phosphatase 55 U/L (46-116); Anion Gap 17 (7-16); Aspartate Amino Transferase 30 U/L (0-34); BUN/Creatinine Ratio 23 Ratio (12-20); Bilirubin,Total 0.4 mg/dL (0.3-1.2); Blood Urea Nitrogen 16 mg/dL (9-23); Calcium 9.0 mg/dL (8.3-10.6); Calcium (Corrected) 9.0 mg/dL (8.5-10.1); Carbon Dioxide 21.0 mMol/L (20.0-31.0); Chloride 107 mMol/L (98-107); Creatinine (Component) 0.7 mg/dL (0.6-1.3); Estimated Creatinine Clearance 70.1 mL/min (>60); Globulin 3.2 gm/dL (2.3-3.5); Glucose 107 mg/dL (74-106); Magnesium 1.8 mg/dL (1.6-2.6); Osmolality,Calculated 289 (275-295); Phosphorous 4.1 mg/dL (2.4-5.1); Potassium 4.1 mMol/L (3.4-5.1); Sodium 145 mMol/L (136-145); Total Protein 7.2 gm/dL (5.7-8.2); eGFR > 60 See Note
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
[2025-07-09] MEDS: HEPARIN SOD INJ 5000 UNIT/ML VIAL SC ×2 (08:25→20:10)
[2025-07-09] MEDS: MULTIVITAMINS TABLET 1 TAB PO (08:25)
[2025-07-09] MEDS: FOLIC ACID 1 MG TABLET PO (08:25)
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
[2025-07-09] MEDS: LOSARTAN POTASSIUM 25 MG TABLET PO (09:32)
[2025-07-09] MEDS: THIAMINE 100 MG TABLET PO ×2 (09:32→20:10)
--- NOTE | 2025-07-09 09:37 | PC.NURSE ---
COORDINATED CARE WITH DR. LEONARD AND PULLEY MORTISER OPERATOR AT BEDSIDE ROUNDING.
[2025-07-09 10:15] LABS: Albumin, Serum 3.7 gm/dL (3.4-4.8); Anion Gap 15 (7-16); BUN/Creatinine Ratio 17 Ratio (12-20); Blood Urea Nitrogen 12 mg/dL (9-23); Calcium 8.6 mg/dL (8.3-10.6); Calcium (Corrected) 8.8 mg/dL (8.5-10.1); Carbon Dioxide 21.6 mMol/L (20.0-31.0); Chloride 108 mMol/L (98-107); Creatinine (Component) 0.7 mg/dL (0.6-1.3); Estimated Creatinine Clearance 69.4 mL/min (>60); Glucose 172 mg/dL (74-106); Osmolality,Calculated 292 (275-295); Phosphorous 3.1 mg/dL (2.4-5.1); Potassium 3.9 mMol/L (3.4-5.1); Sodium 145 mMol/L (136-145); eGFR > 60 See Note
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
--- NOTE | 2025-07-09 11:20 | PC.NURSE ---
MEDICAL TEAM ROUNDING, POC DISCUSSED AT BEDSIDE.
[2025-07-09] MEDS: INSULIN LISPRO (AdmeLOG) 1 UNIT/0.01 ML UNIT SC ×2 (11:31→17:17)
[2025-07-09] MEDS: RINGERS LACTATED 1000 ML 1,000 ML 100 ML IV (12:44)
--- NOTE | 2025-07-09 13:51 | PC.PT ---
Patient is safe to ambulate to the bathroom and in the halls with 1 staff and a FWW. RN made aware.
[2025-07-09 14:25] LABS: Albumin, Serum 3.8 gm/dL (3.4-4.8); Anion Gap 15 (7-16); BUN/Creatinine Ratio 13 Ratio (12-20); Blood Urea Nitrogen 10 mg/dL (9-23); Calcium 8.6 mg/dL (8.3-10.6); Calcium (Corrected) 8.8 mg/dL (8.5-10.1); Carbon Dioxide 20.5 mMol/L (20.0-31.0); Chloride 107 mMol/L (98-107); Creatinine (Component) 0.8 mg/dL (0.6-1.3); Estimated Creatinine Clearance 60.7 mL/min (>60); Glucose 158 mg/dL (74-106); Osmolality,Calculated 285 (275-295); Phosphorous 2.6 mg/dL (2.4-5.1); Potassium 4.0 mMol/L (3.4-5.1); Sodium 142 mMol/L (136-145); eGFR > 60 See Note
--- NOTE | 2025-07-09 15:37 | PC.SS ---
SS met with patient regarding her d/c plan. Pt is alert but confused. SS spoke to her dtr, Preethi by phone (while in patient's room). Pt was admitted for AMS. Dtr confirmed demographic and contact information is correct on facesheet. Pt resides with dtr. Dtr states pt at home is alert/oriented and pt being confused is not her baseline. Pt ambulates independently without assistance or DME. Pt is ok with all ADLs. Patient utilized [facility]. Pt was able to name her dtr, Preethi Herrera medical decision maker if she is unable. Daughter's choice is for pt to return home upon d/c. Pt followed up with PCP last month. Dtr will return home upon dc. D/C plan: Return home Next of Kin: Preethi Herrera, daughter, phone# [phone] PCP: Farida Benaivdes from [facility] Address: Correct on facesheet
[2025-07-09] MEDS: RINGERS LACTATED 1000 ML 1,000 ML 125 ML IV ×2 (16:05→22:49)
[2025-07-09 17:51] LABS: Albumin, Serum 3.6 gm/dL (3.4-4.8); Anion Gap 16 (7-16); BUN/Creatinine Ratio 15 Ratio (12-20); Blood Urea Nitrogen 12 mg/dL (9-23); Calcium 8.4 mg/dL (8.3-10.6); Calcium (Corrected) 8.7 mg/dL (8.5-10.1); Carbon Dioxide 18.7 mMol/L (20.0-31.0); Chloride 107 mMol/L (98-107); Creatinine (Component) 0.8 mg/dL (0.6-1.3); Estimated Creatinine Clearance 59.1 mL/min (>60); Glucose 188 mg/dL (74-106); Osmolality,Calculated 287 (275-295); Phosphorous 2.3 mg/dL (2.4-5.1); Potassium 4.3 mMol/L (3.4-5.1); Sodium 142 mMol/L (136-145); eGFR > 60 See Note
[2025-07-09] MEDS: METOPROLOL SUCCINATE XL 25 MG TABCR 50 MG PO (18:11)
[2025-07-09] MEDS: AMITRIPTYLINE HCL 25 MG TABLET 75 MG PO (20:10)
[2025-07-09] MEDS: cefTRIAXone/D5w 1gm IV premix 1 GM/50 ML BAG IV (20:10)
[2025-07-09 21:58] LABS: Albumin, Serum 3.7 gm/dL (3.4-4.8); Anion Gap 13 (7-16); BUN/Creatinine Ratio 11 Ratio (12-20); Blood Urea Nitrogen 8 mg/dL (9-23); Calcium 8.4 mg/dL (8.3-10.6); Calcium (Corrected) 8.6 mg/dL (8.5-10.1); Carbon Dioxide 20.8 mMol/L (20.0-31.0); Chloride 107 mMol/L (98-107); Creatinine (Component) 0.7 mg/dL (0.6-1.3); Estimated Creatinine Clearance 67.6 mL/min (>60); Glucose 160 mg/dL (74-106); Osmolality,Calculated 282 (275-295); Phosphorous 2.6 mg/dL (2.4-5.1); Potassium 4.1 mMol/L (3.4-5.1); Sodium 141 mMol/L (136-145); eGFR > 60 See Note
[2025-07-09] MEDS: ACETAMINOPHEN 500 MG TABLET 1000 MG PO (22:33)
[2025-07-10] VITALS: BP 143/84; PULSE 87; PULSE 89; RESP 20; TEMP 36.3; O2SAT 93
[2025-07-10] MEDS: ONDANSETRON INJ 2 MG/ML INJ 2 ML 4 MG IVP (00:56)
[2025-07-10 04:00] VITALS: BP 112/70; PULSE 75; PULSE 77; RESP 16; TEMP 36.3; O2SAT 94
[2025-07-10 04:07] VITALS: BMI 27.6
[2025-07-10] MEDS: LEVOTHYROXINE SODIUM 25 MCG TABLET PO (05:11)
[2025-07-10 05:55] LABS: Basophils # (Auto) 0.1 Thou/mm3 (0.0-0.2); Basophils % (Auto) 1 % (0-2.5); Eosinophils # (Auto) 0.3 Thou/mm3 (0.0-0.5); Eosinophils % (Auto) 3 % (0-10); Hematocrit 38.6 % (36.0-46.0); Hemoglobin 12.4 g/dL (12.0-16.0); Immature Granulocytes Auto 0.03 Thou/mm3 (0.00-0.00); Lymphocytes # (Auto) 3.4 Thou/mm3 (1.0-4.8); Lymphocytes % (Auto) 33 % (10-50); Mean Corpuscular HGB Conc 32.1 g/dl (31.0-37.0); Mean Corpuscular Hemoglobin 31.2 pg (25.0-35.0); Mean Corpuscular Volume 97 fL (80-100); Monocytes # (Auto) 0.7 Thou/mm3 (0.0-0.8); Monocytes % (Auto) 7 % (0-12); Neutrophils # (Auto) 5.7 Thou/mm3 (1.8-7.7); Neutrophils % (Auto) 57 % (37-80); Nucleated Red Blood Cell # 0.00 Thou/mm3 (0.00-0.00); Nucleated Red Blood Cell % 0 /100 WBC (0); Platelet Count 320 Thou/mm3 (140-440); RDW Standard Deviation 49.2 fL (36.4-46.3); Red Blood Count 3.97 Miln/mm3 (4.00-5.20); White Blood Count 10.1 Thou/mm3 (3.6-11.0)
[2025-07-10 06:11] LABS: Beta Hydroxybutyrate 3.6 mmol/L (<0.6)
[2025-07-10 06:30] LABS: Glucose Estimated Average 272 mg/dL (80-131); Hemoglobin A1C 11.1 % Hgb (4.8-6.0)
[2025-07-10 06:47] LABS: Alanine Aminotransferase 29 U/L (10-49); Albumin, Serum 3.5 gm/dL (3.4-4.8); Albumin/Globulin Ratio 1.3 (1.2-2.2); Alkaline Phosphatase 57 U/L (46-116); Anion Gap 12 (7-16); Aspartate Amino Transferase 26 U/L (0-34); BUN/Creatinine Ratio 17 Ratio (12-20); Bilirubin,Total 0.4 mg/dL (0.3-1.2); Blood Urea Nitrogen 10 mg/dL (9-23); Calcium 8.2 mg/dL (8.3-10.6); Calcium (Corrected) 8.6 mg/dL (8.5-10.1); Carbon Dioxide 22.7 mMol/L (20.0-31.0); Cardiac Risk Estimate 3.3 RATIO (3.7-5.6); Chloride 106 mMol/L (98-107); Cholesterol 86 mg/dL (132-200); Creatinine (Component) 0.6 mg/dL (0.6-1.3); Estimated Creatinine Clearance 81.0 mL/min (>60); Globulin 2.6 gm/dL (2.3-3.5); Glucose 137 mg/dL (74-106); HDL Cholesterol 26 mg/dL (40-60); LDL Cholesterol,Calculated 15 mg/dL (0-130); Magnesium 1.9 mg/dL (1.6-2.6); Osmolality,Calculated 282 (275-295); Phosphorous 2.8 mg/dL (2.4-5.1); Potassium 4.2 mMol/L (3.4-5.1); Sodium 141 mMol/L (136-145); Total Protein 6.1 gm/dL (5.7-8.2); Triglycerides 223 mg/dL (30-150); eGFR > 60 See Note
[2025-07-10 08:00] VITALS: BP 104/57; PULSE 74; PULSE 83; RESP 16; TEMP 35.9; O2SAT 91
[2025-07-10] MEDS: RINGERS LACTATED 1000 ML 1,000 ML 125 ML IV (08:54)
[2025-07-10] MEDS: Magnesium Sulfate 2 GM Ivpb 2 GM/50 ML BAG IV (08:55)
--- NOTE | 2025-07-10 09:00 | XR_ITS ---
Examination: MRI brain without intravenous contrast. Date and time of exam: July 10, 2025 at 12:15 PM INDICATIONS: CT stroke alert 07/08/2025, onset confusion altered mental status, slurred speech COMPARISON: January 02, 2020 Technique: Multiple axial and sagittal images of the brain obtained. Siemens high-resolution 1.5 Mily short bore scanners utilized. Sagittal sections, T1-weighted, TR 500, TE 14, are performed. Axial sections proton-density and T2-weighted have been obtained. Inversion recovery axial images, TR 9, 260, TE 111, TI 2500. Diffusion weighted images, axial sections, TR 4800, TE 128, B value 1000 Axial sections, ADC map, TR 4800, TE 128 Findings: Enlargement of the sella turcica is not present. The optic chiasm and infundibular are not remarkable. Prepontine and interpeduncular cisterns are not enlarged. There is no localized enlargement of the medulla or yahir. Fourth ventricle and cerebellar tonsils appear normal in position. No subacute area of hemorrhage density is seen. Mass in the cerebellopontine angle region is not evident. Globes symmetrical. Orbital musculature including medial lateral rectus muscles do not exhibit abnormality. Diffusion-weighted images demonstrate no focus of restricted diffusion. Increased white matter signal not seen Mass effect upon the ventricular system is not identified. Impression: Negative for acute hemorrhage mass effect or midline shift No acute infarct
[2025-07-10] MEDS: MULTIVITAMINS TABLET 1 TAB PO (09:03)
[2025-07-10] MEDS: ESCITALOPRAM OXALATE 10 MG TABLET PO (09:03)
[2025-07-10] MEDS: HEPARIN SOD INJ 5000 UNIT/ML VIAL SC (09:03)
[2025-07-10] MEDS: GABAPENTIN 200 MG, GABAPENTIN 600 MG 800 MG PO ×2 (09:03→14:11)
[2025-07-10] MEDS: FOLIC ACID 1 MG TABLET PO (09:04)
[2025-07-10] MEDS: THIAMINE 100 MG TABLET PO (09:05)
[2025-07-10] MEDS: ASPIRIN EC 81 MG TABEC PO (09:05)
[2025-07-10 09:07] VITALS: BP 104/57; PULSE 74
[2025-07-10 12:00] VITALS: BP 112/64; PULSE 80; PULSE 91; RESP 17; TEMP 36.3; O2SAT 93
--- NOTE | 2025-07-10 12:21 | PC.SS ---
Rounding: Pending MRI, DC plan home
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
--- NOTE | 2025-07-10 15:38 | PC.PT ---
Patient will be D/C from PT services due to patient is now xI with bed mobility, transfers, and ambulation with no AD. Patient is back to her baseline/PLOF. RN made aware.
[2025-07-10 16:00] VITALS: BP 140/82; PULSE 87; PULSE 95; RESP 18; TEMP 36.2; O2SAT 94
--- NOTE | 2025-07-11 09:18 | PC.CC ---
Addendum entered by Krystina Miranda RN 07/11/25 12:49: received call from BLAIR Hines, she provided a correct contact # [phone]. Provided contact number in [facility] Addendum entered by Krystina Miranda RN 07/11/25 11:27: compassionate care accepted and booked, soc 07/15 Original Note: HH ref sent out, waiting for response
== END 2025-07-10 18:00 | disposition home health service (06) | DRG 420 ==
LOC: SERX 07-09 01:58 → SERHOLD 07-09 03:55 → S2NX 07-09 04:24
PROVIDERS: Emergency Medicine; Admitting Provider Student in an Organized Health Care Education/Training Program; PCP Registered Nurse Community Health; Visit Provider Student in an Organized Health Care Education/Training Program
DX: E11.10 Type 2 diabetes mellitus with ketoacidosis without coma (principal); E78.5 Hyperlipidemia, unspecified; I10 Essential (primary) hypertension; E03.9 Hypothyroidism, unspecified; E11.40 Type 2 diabetes mellitus with diabetic neuropathy, unspecified; F32.9 Major depressive disorder, single episode, unspecified; N39.0 Urinary tract infection, site not specified; S00.03XA Contusion of scalp, initial encounter; W19.XXXA Unspecified fall, initial encounter; Z79.4 Long term (current) use of insulin; Z79.890 Hormone replacement therapy; Z79.899 Other long term (current) drug therapy; Z87.440 Personal history of urinary (tract) infections; Z87.891 Personal history of nicotine dependence; Z88.6 Allergy status to analgesic agent; R91.1 Solitary pulmonary nodule; T50.995A Adverse effect of other drugs, medicaments and biological substances, initial encounter
CPT/HCPCS: 36415; 36600; 70450; 70486; 70496; 70498; 70551; 71045; 71250; 72125; 73590; 74176; 80053; 80061; 80069; 80307; 80320; 81001; 82010; 82140; 82150; 82248; 82550; 82803; 83036; 83605; 83690; 83735; 83880; 84100; 84145; 84443; 84484; 85025; 85610; 85652; 85730; 86140; 87040; 87086; 87400; 87811; 92507; 92610; 93005; 96361; 96365; 96366; 96372; 96375; 96376; 97162; 99285; A4649; J0696; J1644; J1815; J2405; J2470; J3411; J3475; J7030; J7042; J7050; J7120; Q9967; A9270; G0480

== ENCOUNTER 2025-09-19 20:54 | Inpatient (IN) | payer MEDICAID, SELFPAY ==
[2025-09-19 20:56] VITALS: BMI 25.7
[2025-09-19 21:12] VITALS: BP 167/97; PULSE 112; RESP 20; TEMP 36.6; O2SAT 96
--- NOTE | 2025-09-19 21:17 | PD.EDRME ---
Rapid Medical Screening Exam [facility] Arrival date/time: 09/19/25 20:54 59F with history of DM and cholecystectomy presents to ED with several days of worsening N/V, dysuria, and back/pelvic pain. Chief Complaint: Abdominal Pain Vital signs: Vital Signs Temperature 97.8 F 09/19/25 21:12 Pulse Rate 112 H 09/19/25 21:12 Respiratory Rate 20 09/19/25 21:12 Blood Pressure 167/97 H 09/19/25 21:12 Pulse Oximetry (%) 96 09/19/25 21:12 Oxygen Delivery Method Room Air 09/19/25 21:12 Exam: Appears to be in distress Clinical Impression: UTI/pyelo vs kidney stone vs DKA vs ab pain vs gastroenteritis vs sepsis
[2025-09-19 21:37] LABS: Collection Type, Urine Voided
[2025-09-19 22:01] LABS: Bacteria,Urine Rare; Bilirubin,Urine Negative (Negative); Blood,Urine Negative (Negative); Clarity,Urine Clear (Clear/Hazy); Color,Urine Lt-Yellow (Lt Yel-Yel); Culture Indicated,Urine Not Indicated; Glucose, Urine 4+ (Negative); Ketones,Urine 3+ (Negative); Leukocyte Esterase,Urine Negative (Negative); Nitrite,Urine Negative (Negative); PH,Urine 5.5 (5.0-7.0); Protein,Urine Negative (Neg - Trace); RBC,Urine 17 /hpf (0-3); Specific Gravity,Urine 1.037 (1.001-1.035); Squamous Epithelial Cell,Urine 8 /hpf (0-5); Urobilinogen,Urine Negative mg/dL (0.0-1.0); WBC,Urine 2 /hpf (0-5)
[2025-09-19 22:15] LABS: Base Excess, Venous -6 (-3-3); O2 Saturation, Venous 96 % (96-97); PCO2, Venous 30 mmHg (36-56); PO2, Venous 111 mmHg (15-58); pH, Venous 7.37 (7.33-7.66)
[2025-09-19 22:16] LABS: Lactate (Lactic Acid) 3.2 mMol/L (0.4-2.0)
[2025-09-19 22:22] LABS: Basophils # (Auto) 0.1 Thou/mm3 (0.0-0.2); Basophils % (Auto) 1 % (0-2.5); Eosinophils # (Auto) 0.0 Thou/mm3 (0.0-0.5); Eosinophils % (Auto) 0 % (0-10); Hematocrit 46.7 % (36.0-46.0); Hemoglobin 15.3 g/dL (12.0-16.0); Immature Granulocytes Auto 0.05 Thou/mm3 (0.00-0.00); Lymphocytes # (Auto) 2.9 Thou/mm3 (1.0-4.8); Lymphocytes % (Auto) 21 % (10-50); Mean Corpuscular HGB Conc 32.8 g/dl (31.0-37.0); Mean Corpuscular Hemoglobin 31.4 pg (25.0-35.0); Mean Corpuscular Volume 96 fL (80-100); Monocytes # (Auto) 0.6 Thou/mm3 (0.0-0.8); Monocytes % (Auto) 4 % (0-12); Neutrophils # (Auto) 10.4 Thou/mm3 (1.8-7.7); Neutrophils % (Auto) 74 % (37-80); Nucleated Red Blood Cell # 0.00 Thou/mm3 (0.00-0.00); Nucleated Red Blood Cell % 0 /100 WBC (0); Platelet Count 311 Thou/mm3 (140-440); RDW Standard Deviation 46.0 fL (36.4-46.3); Red Blood Count 4.88 Miln/mm3 (4.00-5.20); White Blood Count 14.1 Thou/mm3 (3.6-11.0)
[2025-09-19 22:32] LABS: Beta Hydroxybutyrate 4.2 mmol/L (<0.6)
[2025-09-19 22:54] LABS: Alanine Aminotransferase 27 U/L (10-49); Albumin, Serum 4.8 gm/dL (3.4-4.8); Albumin/Globulin Ratio 1.5 (1.2-2.2); Alkaline Phosphatase 88 U/L (46-116); Anion Gap 20 (7-16); Aspartate Amino Transferase 18 U/L (0-34); BUN/Creatinine Ratio 12 Ratio (12-20); Bilirubin,Total 0.7 mg/dL (0.3-1.2); Blood Urea Nitrogen 11 mg/dL (9-23); Calcium 10.3 mg/dL (8.3-10.6); Calcium (Corrected) 10.3 mg/dL (8.5-10.1); Carbon Dioxide 18.2 mMol/L (20.0-31.0); Chloride 104 mMol/L (98-107); Creatinine (Component) 0.9 mg/dL (0.6-1.3); Estimated Creatinine Clearance 53.8 mL/min (>60); Globulin 3.3 gm/dL (2.3-3.5); Lipase 23 U/L (12-53); Magnesium 1.6 mg/dL (1.6-2.6); Osmolality,Calculated 300 (275-295); Phosphorous 4.9 mg/dL (2.4-5.1); Potassium 4.7 mMol/L (3.4-5.1); Procalcitonin 0.07 ng/ml (0.0-0.49); Sodium 142 mMol/L (136-145); Total Protein 8.1 gm/dL (5.7-8.2); eGFR > 60 See Note
[2025-09-19 22:56] LABS: Glucose 414 mg/dL (74-106)
[2025-09-19] MEDS: ONDANSETRON INJ 2 MG/ML INJ 2 ML 4 MG IVP (23:22)
[2025-09-19] MEDS: RINGERS LACTATED 1000 ML 1,000 ML 999 ML IV (23:22)
--- NOTE | 2025-09-19 23:44 | PD.EDABDPN ---
ED Abdominal Pain RME/HPI General Chief Complaint: Upper Respiratory Infection Stated complaint: UTI SX DYSURIA Time seen by provider: 09/19/25 21:18 Arrival date/time: 09/19/25 20:54 RME / HPI RME / HPI narrative: 09/19/25 20:54 59F with history of DM and cholecystectomy presents to ED with several days of worsening N/V, dysuria, and back/pelvic pain. DR. TRAN MAIN ED EVALUATION: Patient presenting with flu-like symptoms characterized by fever, chills, nausea, STEINER, and generalized BA. Also notes urinary frequency and urgency. PMH: Peripheral Neuropathy, Migraine, Head Trauma, Hypercholesterolemia, Hypertension, Hypotension, Asthma, Gastritis, Gastroesophageal Reflux Disease, Arthritis, Carpal Tunnel Syndrome, Fibromyalgia, Cataracts, Head Trauma, Diabetes Mellitus Type 2, Hypothyroidism, Depression and Anxiety PSH: Cholecystectomy and Allergies: IBU Social: Marijuana only Exam: Appears to be in distress Impression: UTI/pyelo vs kidney stone vs DKA vs ab pain vs gastroenteritis vs sepsis Related Data Home Medications ?Medication ?Instructions ?Recorded ?Confirmed gabapentin 100 mg capsule 800 mg PO TID 02/15/19 07/09/25 albuterol sulfate 90 mcg/actuation 2 puff inhalation Q4HR PRN Wheezing 08/19/22 07/09/25 aerosol inhaler escitalopram oxalate 10 mg tablet 10 mg PO QDAY 05/31/24 07/09/25 levothyroxine 25 mcg tablet 25 mcg PO QDAY 05/31/24 07/09/25 pantoprazole 40 mg tablet,delayed 40 mg PO QDAY 05/31/24 07/09/25 release amitriptyline 75 mg tablet 75 mg PO HS 06/01/24 07/09/25 aspirin 81 mg tablet 81 mg PO QDAY 06/12/24 07/09/25 docusate sodium 100 mg capsule 100 mg PO BID 06/12/24 07/09/25 (Colace) famotidine 40 mg tablet 40 mg PO QDAY 06/12/24 07/09/25 [id number] 1 cap PO BID 06/12/24 07/09/25 oil 350 mg-400 mg capsule insulin degludec 100 unit/mL (3 30 unit subcut QHS 11/20/24 07/09/25 mL) subcutaneous pen (Tresiba FlexTouch U-100 insulin) atorvastatin 80 mg tablet 80 mg PO HS 07/09/25 07/09/25 meclizine 25 mg tablet 25 mg PO DAILY PRN dizziness 07/09/25 07/09/25 meloxicam 7.5 mg tablet 7.5 mg PO DAILY 07/09/25 07/09/25 metoprolol succinate 50 mg 50 mg PO DAILY 07/09/25 07/09/25 tablet,extended release 24 hr tirzepatide 15 mg/0.5 mL 15 mg subcut QWEEK 07/09/25 07/09/25 subcutaneous pen injector (Mounjaro) Allergies Allergy/AdvReac Type Severity Reaction Status Date / Time ibuprofen Allergy Severe Gastrointestinal Verified 09/19/25 21:01 Upset Review of Systems Review of Systems Systems Reviewed: All systems reviewed, normal except as documented Past Medical History Past Medical History NEUROLOGIC: Positive Peripheral Neuropathy, Migraine and Head Trauma CARDIAC: Positive Hypercholesterolemia, Hypertension and Hypotension RESPIRATORY: Positive Asthma, Bronchitis (in past) and Pneumonia (took antiotics) GASTROINTESTINAL: Positive Gastrointestinal Disorders (gastritis) and Gastroesophageal Reflux Disease REPRODUCTIVE: Positive Previous Pregnancies (3) MUSCULOSKELETAL: Positive Arthritis, Carpal Tunnel Syndrome and Fibromyalgia ENT: Positive Cataracts and Head Trauma ENDOCRINE: Positive Diabetes Mellitus Type 2 and Hypothyroidism PSYCHO/SOCIAL: Positive Depression and Anxiety OTHER HISTORY: Positive Falls (04/27/2024) and Chicken Pox Family History FAMILY HISTORY: Positive Family Cardiac Disorders and Family Surgery Surgical History SURGICAL: Positive Abdominal Surgery and Section (x3) ED Exam Narrative Physical exam: GEN. APPEARANCE: The patient is alert awake oriented X-3 with increased psychomotor activity, appears mildly agitated, lying down comfortably, does not look ill/toxic. Patient has good eye contact. Patient is cooperative. VITALS: All vitals were reviewed and the pulse ox is 96%, which is normal according to my interpretation HEENT: Normocephalic, atraumatic and nontender. Pupils are equal and reactive. Oral mucosa is moist. NECK: Supple, nontender, no meningismus, no JVD. There is no thyromegaly and no lymphadenopathy. CHEST: Nontender on palpation no deformity and no crepitus. CARDIOVASCULAR: Tachycardic, no murmur or gallop rub or extra beats. LUNGS: Clear to auscultation bilaterally with symmetrical chest rise. No laboring tachypnea or wheezing. No intercostal subcostal retraction. No rales and no rhonchi. ABDOMEN: Soft, flat, nontender to palpation, no guarding or rebound tenderness. There are no abnormal masses palpated. No pulsatile masses or bruits. Active and normal bowel sounds. EXTREMITIES: Normal inspection and palpation. No edema. No cyanosis. Patient is able to move all 4 extremities well SKIN: Warm and dry, no rashes noted. MUSCULOSKELETAL: No lumbar or midline bony tenderness. There is no CVA tenderness. No paraspinal muscle spasm or tenderness. NEURO: Cranial nerves II through XII grossly intact. There are no focal neurologic deficits noted. GCS is 15 PSYCHIATRIC: Patient is in normal mood and affect, cooperative. LYMPHATICS: No major lymphadenopathy noted. Course Quality Measures none Orders Category Date Time Status Admit to Inpatient Status Routine Admission 09/20/25 04:51 Active Patient Condition Routine Admission 09/20/25 04:51 Ordered Bedside Blood Glucose Q1HR Care 09/20/25 04:51 Active Bedside Blood Glucose STAT Care 09/20/25 04:38 Active Bedside COVID-19 Antigen Test NOW Care 09/20/25 04:53 Active Blood glucose [Bedside Blood Glucose] NOW Care 09/19/25 22:05 Active Mexican Food Machine Tender Q4H Care 09/20/25 04:53 Active Mexican Food Machine Tender STAT Care 09/20/25 04:38 Active DKA Protocol QSHIFT Care 09/20/25 04:38 Active Insert IV NOW Care 09/19/25 21:16 Active Intake and Output Q1H Care 09/20/25 05:00 Ordered Intake and Output Q1H Care 09/20/25 06:00 Ordered Intake and Output Q1H Care 09/20/25 07:00 Ordered Intake and Output Q1H Care 09/20/25 08:00 Ordered Intake and Output Q1H Care 09/20/25 09:00 Ordered Intake and Output Q1H Care 09/20/25 10:00 Ordered Intake and Output Q1H Care 09/20/25 11:00 Ordered Intake and Output Q1H Care 09/20/25 12:00 Ordered Intake and Output Q1H Care 09/20/25 13:00 Ordered Intake and Output Q1H Care 09/20/25 14:00 Ordered Intake and Output Q1H Care 09/20/25 15:00 Ordered Intake and Output Q1H Care 09/20/25 16:00 Ordered Intake and Output Q1H Care 09/20/25 17:00 Ordered Intake and Output Q1H Care 09/20/25 18:00 Ordered Intake and Output Q1H Care 09/20/25 19:00 Ordered Intake and Output Q1H Care 09/20/25 20:00 Ordered Intake and Output Q1H Care 09/20/25 21:00 Ordered Intake and Output Q1H Care 09/20/25 22:00 Ordered Intake and Output Q1H Care 09/20/25 23:00 Ordered Miscellaneous Nursing Order NOW Care 09/20/25 04:55 Active NPO NOW Care 09/20/25 04:52 Active Notify provider NEEDED Care 09/20/25 04:38 Active Notify provider NEEDED Care 09/20/25 04:51 Active Strict Intake and Output Q1H Care 09/20/25 05:00 Ordered Strict Intake and Output Q1H Care 09/20/25 06:00 Ordered Strict Intake and Output Q1H Care 09/20/25 07:00 Ordered Strict Intake and Output Q1H Care 09/20/25 08:00 Ordered Strict Intake and Output Q1H Care 09/20/25 09:00 Ordered Strict Intake and Output Q1H Care 09/20/25 10:00 Ordered Strict Intake and Output Q1H Care 09/20/25 11:00 Ordered Strict Intake and Output Q1H Care 09/20/25 12:00 Ordered Strict Intake and Output Q1H Care 09/20/25 13:00 Ordered Strict Intake and Output Q1H Care 09/20/25 14:00 Ordered Strict Intake and Output Q1H Care 09/20/25 15:00 Ordered Strict Intake and Output Q1H Care 09/20/25 16:00 Ordered Strict Intake and Output Q1H Care 09/20/25 17:00 Ordered Strict Intake and Output Q1H Care 09/20/25 18:00 Ordered Strict Intake and Output Q1H Care 09/20/25 19:00 Ordered Strict Intake and Output Q1H Care 09/20/25 20:00 Ordered Strict Intake and Output Q1H Care 09/20/25 21:00 Ordered Strict Intake and Output Q1H Care 09/20/25 22:00 Ordered Strict Intake and Output Q1H Care 09/20/25 23:00 Ordered Strict Intake and Output Q1H Care 09/21/25 00:00 Ordered Strict Intake and Output Q1H Care 09/21/25 01:00 Ordered Strict Intake and Output Q1H Care 09/21/25 02:00 Ordered Strict Intake and Output Q1H Care 09/21/25 03:00 Ordered Strict Intake and Output Q1H Care 09/21/25 04:00 Ordered Referral Registered Dietitian Routine Cons 09/20/25 04:38 Active Diet NPO (NOW) Diet 09/20/25 04:52 Active XR chest 1V portable Stat Exams 09/20/25 00:11 Taken Arterial Blood Gas Stat Lab 09/20/25 04:38 Ordered Beta Hydroxybutyrate DAILY Lab 09/21/25 09:00 Ordered Beta Hydroxybutyrate DAILY Lab 09/22/25 09:00 Ordered Beta Hydroxybutyrate DAILY Lab 09/23/25 09:00 Ordered Beta Hydroxybutyrate Stat Lab 09/19/25 22:05 Completed Beta Hydroxybutyrate Stat Lab 09/20/25 04:38 Ordered Blood Culture (Lab) Stat Lab 09/20/25 04:38 Ordered CBC AM DRAW Lab 09/21/25 05:00 Ordered CBC AM DRAW Lab 09/22/25 05:00 Ordered CBC Stat Lab 09/19/25 22:05 Completed CBC Stat Lab 09/20/25 04:38 Ordered CMP [Comprehensive Metabolic Panel] Stat Lab 09/19/25 22:05 Completed Comprehensive Metabolic Panel Stat Lab 09/20/25 04:38 Ordered Glycohemoglobin w (eAG) Stat Lab 09/20/25 04:38 Ordered Influenza A & B Rapid Panel Stat Lab 09/20/25 04:53 Ordered Lactate (Lactic Acid) Q4H Lab 09/20/25 09:00 Ordered Lactate (Lactic Acid) Q4H Lab 09/20/25 13:00 Ordered Lactate (Lactic Acid) Q4H Lab 09/20/25 17:00 Ordered Lactate (Lactic Acid) Q4H Lab 09/20/25 21:00 Ordered Lactate (Lactic Acid) Q4H Lab 09/21/25 01:00 Ordered Lactate (Lactic Acid) Q4H Lab 09/21/25 05:00 Ordered Lactate (Lactic Acid) Q4H Lab 09/21/25 09:00 Ordered Lactate (Lactic Acid) Q4H Lab 09/21/25 13:00 Ordered Lactate (Lactic Acid) Q4H Lab 09/21/25 17:00 Ordered Lactate (Lactic Acid) Q4H Lab 09/21/25 21:00 Ordered Lactate (Lactic Acid) Q4H Lab 09/22/25 01:00 Ordered Lactate (Lactic Acid) Q4H Lab 09/22/25 05:00 Ordered Lactate (Lactic Acid) Stat Lab 09/19/25 22:05 Completed Lactate (Lactic Acid) Stat Lab 09/20/25 04:38 Ordered Lactic Acid, 3 HR Stat Lab 09/20/25 02:13 Completed Lipase Stat Lab 09/19/25 22:05 Completed Magnesium Q4H Lab 09/20/25 09:00 Ordered Magnesium Q4H Lab 09/20/25 13:00 Ordered Magnesium Q4H Lab 09/20/25 17:00 Ordered Magnesium Q4H Lab 09/20/25 21:00 Ordered Magnesium Q4H Lab 09/21/25 01:00 Ordered Magnesium Q4H Lab 09/21/25 05:00 Ordered Magnesium Q4H Lab 09/21/25 09:00 Ordered Magnesium Q4H Lab 09/21/25 13:00 Ordered Magnesium Q4H Lab 09/21/25 17:00 Ordered Magnesium Q4H Lab 09/21/25 21:00 Ordered Magnesium Q4H Lab 09/22/25 01:00 Ordered Magnesium Q4H Lab 09/22/25 05:00 Ordered Magnesium Stat Lab 09/19/25 22:05 Completed Magnesium Stat Lab 09/20/25 04:38 Ordered Partial Thromboplastin Time AM DRAW Lab 09/21/25 05:00 Ordered Phosphorous Q4H Lab 09/21/25 01:00 Ordered Phosphorous Q4H Lab 09/21/25 05:00 Ordered Phosphorous Q4H Lab 09/21/25 09:00 Ordered Phosphorous Q4H Lab 09/21/25 13:00 Ordered Phosphorous Q4H Lab 09/21/25 17:00 Ordered Phosphorous Q4H Lab 09/21/25 21:00 Ordered Phosphorous Q4H Lab 09/22/25 01:00 Ordered Phosphorous Q4H Lab 09/22/25 05:00 Ordered Phosphorous Stat Lab 09/19/25 22:05 Completed Phosphorous Stat Lab 09/20/25 04:38 Ordered Procalcitonin Stat Lab 09/19/25 22:05 Completed Prothrombin Time with INR AM DRAW Lab 09/21/25 05:00 Ordered Renal Function Panel Q4 Lab 09/20/25 09:00 Ordered Renal Function Panel Q4 Lab 09/20/25 13:00 Ordered Renal Function Panel Q4 Lab 09/20/25 17:00 Ordered Renal Function Panel Q4 Lab 09/20/25 21:00 Ordered Renal Function Panel Q4 Lab 09/21/25 01:00 Ordered Renal Function Panel Q4 Lab 09/21/25 05:00 Ordered Renal Function Panel Q4 Lab 09/21/25 09:00 Ordered Renal Function Panel Q4 Lab 09/21/25 13:00 Ordered Renal Function Panel Q4 Lab 09/21/25 17:00 Ordered Renal Function Panel Q4 Lab 09/21/25 21:00 Ordered Renal Function Panel Q4 Lab 09/22/25 01:00 Ordered Renal Function Panel Q4 Lab 09/22/25 05:00 Ordered Thyroid Stimulating Hormone AM DRAW Lab 09/20/25 04:38 Ordered Urinalysis, C/S if Indicated Stat Lab 09/19/25 21:23 Completed Urinalysis, C/S if Indicated Stat Lab 09/20/25 04:38 Ordered VBG [Venous Blood Gas] Stat Lab 09/19/25 22:05 Completed Acetaminophen Tab [Tylenol Tab] Med 09/20/25 04:51 Active 650 mg PO Q6H PRN Acetaminophen Tab [Tylenol Tab] Med 09/20/25 04:51 Active 650 mg PO Q6H PRN Dextrose 5%-Lactated Ringers [D5-Lr] 1,000 ml Med 09/20/25 04:38 Active Pot Chl Additive [KCl Additive] 40 meq IV 250 mls/hr Dextrose 5%-Lactated Ringers [D5-Lr] 1,000 ml Med 09/20/25 04:38 Active IV 250 mls/hr Dextrose 50% Syr [D50w Syringe Abboject] Med 09/20/25 04:38 Active 25 ml IV PRNMRX1 PRN DiphenhydrAMINE INJ [Benadryl Inj] Med 09/20/25 04:54 Discontinued 25 mg IVP X1 ONE Heparin Inj Med 09/20/25 06:00 Active 5,000 unit SC Q8HR KCL 20 mEq/L in D5-LR Med 09/20/25 04:38 Active 20 meq in 1,000 ml IV 250 mls/hr Magnesium Sulfate 2 GM Ivpb [Magnesium Sulfate Ivpb] Med 09/20/25 04:38 Active 2 gm in 50 ml IV 25 mls/hr Magnesium Sulfate 4 GM Ivpb [Magnesium Sulfate Ivpb] Med 09/20/25 04:55 Active 4 gm in 50 ml IV X1 Metoclopramide Inj [Reglan Inj] Med 09/20/25 02:28 Discontinued 10 mg IVP X1 ONE Ondansetron Inj [Zofran Inj] Med 09/20/25 04:51 Active 4 mg IVP Q6H PRN Ondansetron Inj [Zofran Inj] Med 09/19/25 21:16 Discontinued 4 mg IVP X1 ONE POT PHOS 15 mMol in NS 250 ML [Pot Phos 15 mMol in NS Med 09/20/25 04:38 Active 250 ml] 15 mmol in 250 ml IV PRN POTASSIUM CHL 10 mEq IVPB [Kcl Ivpb] Med 09/20/25 04:38 Active 10 meq in 100 ml IV 100 mls/hr POTASSIUM CHL 10 mEq IVPB [Kcl Ivpb] Med 09/20/25 04:38 Active 10 meq in 100 ml IV PRN Pre-Mixed [Pre-mixed Bag] 1 bag Med 09/20/25 04:38 Active Insulin Reg 100 Units/100 ml [Myxredlin] 100 unit IV 0.1 unit/kg/hr Ringers Lactated 1000 ml [Lactated Ringers] 1,000 ml Med 09/20/25 04:38 Active Pot Chl Additive [KCl Additive] 20 meq IV 250 mls/hr Ringers Lactated 1000 ml [Lactated Ringers] 1,000 ml Med 09/20/25 04:38 Active Pot Chl Additive [KCl Additive] 40 meq IV 250 mls/hr Ringers Lactated 1000 ml [Lactated Ringers] 1,000 ml Med 09/20/25 04:38 Active IV 250 mls/hr Ringers Lactated 1000 ml [Lactated Ringers] 1,000 ml Med 09/19/25 22:04 Discontinued IV 999 mls/hr Ringers Lactated 1000 ml [Lactated Ringers] 1,000 ml Med 09/20/25 04:59 Active IV 999 mls/hr Senna [Senokot] Med 09/20/25 04:51 Active 1 tab PO QDAY PRN Sodium Bicarb 8.4% SYR Med 09/20/25 04:38 Active 50 ml IV Q4HR PRN Sodium Chloride 0.9% 1000 ml [Ns] 1,000 ml Med 09/19/25 21:16 Discontinued IV 999 mls/hr Sodium Chloride 0.9% 1000 ml [Ns] 1,000 ml Med 09/20/25 03:00 Discontinued IV 999 mls/hr Sodium Chloride 0.9% 250 ml [Ns] 250 ml Med 09/20/25 04:38 Active Sod Phos Additive [NaPhos Additive] 15 mmol IV 62.5 mls/hr Code Status Routine Oth 09/20/25 04:51 Ordered Oxygen Delivery PRN RT 09/20/25 04:51 Active Vital Signs Vital signs: Vital Signs Temperature 97.8 F 09/19/25 21:12 Pulse Rate 112 H 09/19/25 21:12 Respiratory Rate 20 09/19/25 21:12 Blood Pressure 167/97 H 09/19/25 21:12 Pulse Oximetry (%) 96 09/19/25 21:12 Oxygen Delivery Method Room Air 09/19/25 21:12 Abdominal Pain MDM MDM Narrative MDM Narrative:: Scribe Attestation: IWinifred am scribing for and in the presence of Dr. Gaines. Provider Notation: Although this document has been carefully reviewed, there may still be some phonetic and other typographical errors. These errors are purely grammatical due to imperfections in the software program and should not be construed in any way to compromise the substance of the patient's medical care during this visit. Patient presenting with flu-like symptoms characterized by fever, chills, nausea, STEINER, and generalized BA. Also notes urinary frequency and urgency. Please see PE findings. Laboratory markers pertinent for elevated blood sugar in mid 400 rage with evidence of Anion Gap and Beta-Hydroxybutyrate/Acetoacetate. Patient aggressively hydrated with gradual reduction of blood sugar to 300 range and subsequently placed on insulin infusion per protocol. Influenza and COVID tests currently pending. Patient data External records reviewed:: [facility] previous records (Reviewed prior ED records from 07/08/25. Patient was seen for Altered mental status.) Clinical information provided by:: patient Social determinants that could affect healthcare access:: substance use (Marijuana) Patient has the following chronic illnesses:: Peripheral Neuropathy, Migraine, Head Trauma, Hypercholesterolemia, Hypertension, Hypotension, Asthma, Gastritis, Gastroesophageal Reflux Disease, Arthritis, Carpal Tunnel Syndrome, Fibromyalgia, Cataracts, Head Trauma, Diabetes Mellitus Type 2, Hypothyroidism, Depression and Anxiety How is presenting disease/condition affected by chronic disease/condition?: exacerbated by Evaluation data The following diagnostics were reviewed and interpreted by me:: lab results and radiology exam(s) Lab and/or radiology exams considered but not ordered:: None Interpretation Summary: RADIOLOGY Chest X-Ray: Pending official radiology report. Medications / Prescriptions Medications or Prescriptions considered but not ordered:: None Medication administrations:: Medication Administration History Acetaminophen (Acetaminophen 325 Mg Tablet) 650 mg PO Q6H PRN PRN Reason: Fever >101.5 Stop: 10/20/25 04:50 Acetaminophen (Acetaminophen 325 Mg Tablet) 650 mg PO Q6H PRN PRN Reason: PAIN SCALE 1-3 (mild Stop: 10/20/25 04:50 Dextrose (Dextrose 50%-Water Inj 50 Ml Syringe) 25 ml IV PRNMRX1 PRN PRN Reason: Blood Sugar - Low Heparin Sodium (Porcine) (Heparin Sod Inj 5000 Unit/Ml Vial) 5,000 unit SC Q8HR GEORGES Stop: 10/04/25 05:59 Potassium Chloride (Kcl Ivpb) 10 meq in 100 mls @ 100 mls/hr IV .Q1H PRN PRN Reason: IF POTASSIUM LESS THAN 3.3 Stop: 10/20/25 04:37 Magnesium Sulfate (Magnesium Sulfate Ivpb) 2 gm in 50 mls @ 25 mls/hr IV .Q2H PRN PRN Reason: PER DKA PROTOCOL Stop: 10/20/25 04:37 Insulin Human Regular 100 unit (/ IV Miscellaneous Supplies) 100 mls @ 5.987 mls/hr IV .[id number] PRN; Protocol PRN Reason: PER PROTOCOL Stop: 10/20/25 04:37 Last Admin: 09/20/25 05:18 Dose: 0.1 unit/kg/hr, 5.987 mls/hr Documented By: MAREN Co-signed By: Dextrose/Lactated Ringer's (D5-Lr) 1,000 mls @ 250 mls/hr IV .Q4H PRN PRN Reason: PER PROTOCOL Stop: 10/20/25 04:37 Lactated Ringer's (Lactated Ringers) 1,000 mls @ 250 mls/hr IV .Q4H PRN PRN Reason: PER PROTOCOL Stop: 09/21/25 04:37 Last Admin: 09/20/25 05:18 Dose: 250 mls/hr Documented By: MAREN Potassium Chloride 20 meq/ (Lactated Ringer's) 1,010 mls @ 250 mls/hr IV .Q4H3M PRN PRN Reason: K LEVEL 3.3 TO 5.3mM/L Stop: 10/20/25 04:37 Potassium Chloride 40 meq/ (Lactated Ringer's) 1,020 mls @ 250 mls/hr IV .Q4H5M PRN PRN Reason: K LEVEL < 3.3 mM/L Stop: 10/20/25 04:37 Potassium Chloride 40 meq/ (Dextrose/Lactated Ringer's) 1,020 mls @ 250 mls/hr IV .Q4H5M PRN PRN Reason: K LEVEL < 3.3mM/L Stop: 10/20/25 04:37 Potassium Cl/Dextrose/Lact Ringer's (Kcl 20 Meq/L In D5-Lr) 20 meq in 1,000 mls @ 250 mls/hr IV .Q4H PRN PRN Reason: K LEVEL 3.3 TO 5.3 mM/L Potassium Chloride (Kcl Ivpb) 10 meq in 100 mls @ 50 mls/hr IV PRN PRN PRN Reason: K LEVEL 3.3 to 5.3 & BG > 200 Stop: 10/20/25 04:37 Potassium Phosphate (Pot Phos 15 Mmol In Ns 250 Ml) 15 mmol in 250 mls @ 62.5 mls/hr IV PRN PRN PRN Reason: Phosphate <= 1mg/dL Stop: 10/20/25 04:37 Sodium Phosphate 15 mmol/ (Sodium Chloride) 255 mls @ 62.5 mls/hr IV .Q4H5M PRN PRN Reason: Phosphate <= 1mg/dL and K> than 5.3 Stop: 10/20/25 04:37 Magnesium Sulfate (Magnesium Sulfate Ivpb) 4 gm in 50 mls @ 12.5 mls/hr IV X1 ONE Stop: 09/20/25 08:54 Lactated Ringer's (Lactated Ringers) 1,000 mls @ 999 mls/hr IV .Q1H1M ONE Stop: 09/20/25 05:59 Last Admin: 09/20/25 05:18 Dose: 999 mls/hr Documented By: MAREN Ondansetron HCl (Ondansetron Inj 2 Mg/Ml Inj 2 Ml) 4 mg IVP Q6H PRN; Protocol PRN Reason: NAUSEA OR VOMITING Stop: 10/20/25 04:50 Sennosides (Senna Tablet) 1 tab PO QDAY PRN; Protocol PRN Reason: constipation Stop: 10/20/25 04:50 Sodium Bicarbonate (Sodium Bicarb Inj 8.4% Syr 50 Ml Syringe) 50 ml IV Q4HR PRN PRN Reason: For ph <= to 7.0 Stop: 10/20/25 04:37 Discontinued Medications Diphenhydramine HCl (Diphenhydramine Inj 50 Mg/Ml Vial) 25 mg IVP X1 ONE Stop: 09/20/25 04:55 Last Admin: 09/20/25 05:13 Dose: 25 mg Documented By: MAREN Sodium Chloride (Ns) 1,000 mls @ 999 mls/hr IV .Q1H1M ONE Stop: 09/19/25 22:16 Last Admin: 09/19/25 23:23 Dose: Not Given Documented By: DIRK Non-Admin Reason: Discontinued Lactated Ringer's (Lactated Ringers) 1,000 mls @ 999 mls/hr IV .Q1H1M ONE Stop: 09/19/25 23:04 Last Infusion: 09/20/25 00:54 Dose: Infused Documented By: Admin: 09/19/25 23:22 Dose: 999 mls/hr Documented By: DIRK Sodium Chloride (Ns) 1,000 mls @ 999 mls/hr IV .Q1H1M ONE Stop: 09/20/25 04:00 Last Infusion: 09/20/25 04:30 Dose: Infused Documented By: Admin: 09/20/25 03:06 Dose: 999 mls/hr Documented By: MAREN Metoclopramide HCl (Metoclopramide Inj 5 Mg/Ml Vial 2 Ml) 10 mg IVP X1 ONE; Protocol Stop: 09/20/25 02:29 Last Admin: 09/20/25 02:38 Dose: 10 mg Documented By: MAREN Ondansetron HCl (Ondansetron Inj 2 Mg/Ml Inj 2 Ml) 4 mg IVP X1 ONE; Protocol Stop: 09/19/25 21:17 Last Admin: 09/19/25 23:22 Dose: 4 mg Documented By: DIRK See above if any Consultations Consultation(s) initiated? (list below): Yes Consultation #1 (Physician, Specialty, Details): Discussed with ICU resident for admission. Reviewed the patient?s HPI, PMHx, lab and/or radiology results. Discussed treatment plan. Will consult an admission to the hospitalist. Time: 04:46 Consultation #2 (Physician, Specialty, Details): Discussed with Dr. Valdivia for admission. Reviewed the patient?s HPI, PMHx, lab and/or radiology results. Discussed treatment plan. Will consult an admission to the soa engineer. Time: 04:48 Diagnosis Differential diagnosis abdominal pain: abdominal pain, gastroenteritis and other (Hyperglycemia, Sepsis, SBO, Influenza, Viral Illness) Most likely diagnosis given after review of the tests above:: DKA, Viral Syndrome Admission Indicated Admission indicated?: indicated Explain why admission is indicated or not indicated:: DKA Admission Request Was there a request for admission?: Yes Admission Attestation Admission request attestation: Discussed case with [] from Hospitalist service regarding admission. Discussed patients ED course, exam findings, labs, and radiology results. The Hospitalist [agrees,declines] to accept the patient for admission. Disposition Plan Disposition Plan: Admit Critical Care Time Critical Care Time Critical Care Time: No Discharge Plan Plan Patient Disposition: Admit Acute Care w/in Hospital Problem List Clinical Impression: DKA (diabetic ketoacidosis), Viral syndrome
[2025-09-20] VITALS (32 sets, daily range): BP systolic 118–151; BP diastolic 60–92; PULSE 89–112; RESP 16–97; TEMP 36.1–36.8; O2SAT 89–97; BMI 25.9
--- NOTE | 2025-09-20 00:11 | XR_ITS ---
EXAMINATION: AP chest single view TECHNIQUE: AP portable upright chest single view Date and time: September 20-5003 0 hours, comparison 07/08/2025 INDICATIONS: Shortness of breath today FINDINGS: Normal heart size Lungs are clear. Prominent osteopenia IMPRESSION: No active disease
[2025-09-20 01:09] LABS: Reflex Lactate? Y
[2025-09-20 02:27] LABS: Lactic Acid, 3 HR 3.9 mMol/L (0.4-2.0)
[2025-09-20] MEDS: METOCLOPRAMIDE INJ 5 MG/ML VIAL 2 ML 10 MG IVP (02:38)
[2025-09-20] MEDS: SODIUM CHLORIDE 0.9% 1000 ML 1,000 ML 999 ML IV (03:06)
--- NOTE | 2025-09-20 04:56 | ESHP_ITS ---
<Statement entered by Barrie Calderón MD - 09/20/25 06:03> I have discussed and was present for the essential components of the history, physical examination, diagnosis, and treatment plan with the resident. I agree with the patient's care as documented by the resident and amended herein by me. I personally saw and examined the patient with the resident on 09/20/2025. I agree with the residents note, assessment and plan. I personally spent 35 minutes of critical care time in evaluation and management of this critically ill patient with diabetic ketoacidosis. Barrie Calderón MD FACP. Documentation for date of: 09/20/25 HPI History of Present Illness Chief complaint: N/V with flu like symptoms History of present illness: This patient is a 59-year-old female with past medical history of insulin- dependent diabetes, diabetic neuropathy, hypothyroidism, hypertension, TMA presented to the ED on 09/20/2025 with chief complaint of worsening nausea and vomiting associated with dysuria per RN stated by daughter. Patient's daughter told the nurse that she has flulike symptoms characterized by fever/chills, nausea and generalized bodyaches from last few days. She also found to have urinary frequency and urgency. During my assessment, patient's daughter was not present at the bedside. Patient is confused although alert but not oriented to time place and person. She grimaced with pain on abdominal palpation. Limited history taking. Attempted to call daughter thrice but she did not answer the phone call and dropped a voice note. ED course: Patient presented with blood pressure 167/97, heart rate 112, respirate 20 afebrile and saturating well on room air. Labs were significant for leukocytosis white count 14.1, hemoglobin 15.3, platelet count 311. VBG showed pH 7.37, pCO2 30, pO2 111. Chemistry panel showed sodium 142, potassium 4.7, chloride 104. Bicarb 18.2. Anion gap 20. BUN 11 and creatinine 0.9. Baseline creatinine 0.6 from 07/10/2025. Blood glucose 414. A1c 11.1. Lactic acidosis 3.2--> 3.9. Corrected calcium 10.3. Magnesium 1.6. Beta-hydroxybutyrate 4.2. Urinalysis showed pH 5.5. Sp gravity 1.037. Glucose 4+ Ketones 3+. Prior Utox positve for Marijuana. EKG showed sinus tachycardia with [address]-T changes Qtc 397. Cxr showed no active disease. In the ED, patient received 2 L bolus of fluids including NS and LR, Zofran 4 mg IV x 1, metoclopramide 10 mg IV x 1. PMH: As above PSH: Cholecystectomy, carpal tunnel repair Allergies: Ibuprofen allergy causes gastric upset FH: Relevant SH: Former smoker quit smoking 10 years ago. THC in the past but not current. No history of alcohol use. Home medications: Degludec 30 units subcut, gabapentin 100 mg 3 times daily, famotidine 40 mg, docusate 100 mg twice daily, aspirin 81 mg once daily, albuterol inhaler, levothyroxine 25 mcg, Protonix 40 mg, escitalopram 10 mg, amitriptyline 75 mg at bedtime, metoprolol succinate 50 daily, meclizine 25 mg daily, atorvastatin 40 mg daily, meloxicam 7.5 mg, Mounjaro 15 mg subcut weekly Patient is admitted to ICU for further workup and management of DKA. Review of Systems Review of Systems ROS Unobtainable: unobtainable due to mental status Past Medical History Past Medical History NEUROLOGIC: Positive Peripheral Neuropathy, Migraine and Head Trauma CARDIAC: Positive Hypercholesterolemia, Hypertension and Hypotension RESPIRATORY: Positive Asthma, Bronchitis (in past) and Pneumonia (took antiotics) GASTROINTESTINAL: Positive Gastrointestinal Disorders (gastritis) and Gastroesophageal Reflux Disease REPRODUCTIVE: Positive Previous Pregnancies (3) MUSCULOSKELETAL: Positive Arthritis, Carpal Tunnel Syndrome and Fibromyalgia ENT: Positive Cataracts and Head Trauma ENDOCRINE: Positive Diabetes Mellitus Type 2 and Hypothyroidism PSYCHO/SOCIAL: Positive Depression and Anxiety OTHER HISTORY: Positive Falls (04/27/2024) and Chicken Pox Family History FAMILY HISTORY: Positive Family Cardiac Disorders and Family Surgery Surgical History SURGICAL: Positive Abdominal Surgery and Section (x3) Exam Vital Signs Temp Pulse Resp BP Pulse Ox O2 Del Method 98.3 F 111 H 21 H 147/71 H 97 Room Air 09/20/25 02:53 09/20/25 04:35 09/20/25 04:35 09/20/25 04:35 09/20/25 04:35 09/20/25 04:35 Narrative Exam GENERAL APPEARANCE: ill appearing confused female alert but not oriented to time place and person. Saturating well on room air. HEENT: NC, AT. dry mucus membrane. EOMI, clear conjunctiva, oropharynx clear. NECK: Supple without lymphadenopathy. No stiffness or restricted ROM. HEART: sinus tacycardia regular rhythm, normal S1/S2, no m/r/g LUNGS: CTAB, moving air well. No crackles or wheezes are heard. ABDOMEN: Soft, epigastric tenderness , nondistended with good bowel sounds heard. BACK: No CVAT, no obvious deformity. EXTREMITIES: Without cyanosis, clubbing or edema. Skin: Warm and dry, no jaundice/rashes. NEURO: No lumbar or midline, no CVA, no paraspinal muscle spasm or tenderness. Moves all 4 extremities well, with full ROM and good CSM. GÓMEZ x4, CN II-XII grossly intact. No focal neurologic deficits. PSYCH: appropriate mood and affect, cooperative. Results: Labs 09/19/25 22:05 09/19/25 22:05 Labs: Short CBC 09/19/25 Range/Units 22:05 WBC 14.1 H (3.6-11.0) Thou/mm3 Hgb 15.3 (12.0-16.0) g/dL Hct 46.7 H (36.0-46.0) % Plt Count 311 (140-440) Thou/mm3 BMP 09/19/25 22:05 Sodium 142 Potassium 4.7 Chloride 104 Carbon Dioxide 18.2 L BUN 11 Creatinine 0.9 Glucose 414 H* Calcium 10.3 Liver Function 09/19/25 Range/Units 22:05 Total Bilirubin 0.7 (0.3-1.2) mg/dL AST 18 (0-34) U/L ALT 27 (10-49) U/L Alkaline Phosphatase 88 (46-116) U/L Albumin 4.8 (3.4-4.8) gm/dL Urine 09/19/25 Range/Units 21:23 Urine Color Lt-Yellow (Lt Yel-Yel) Urine Clarity Clear (Clear/Hazy) Urine pH 5.5 (5.0-7.0) Ur Specific [place] 1.037 H (1.001-1.035) Urine Protein Negative (Neg - Trace) Urine Glucose (UA) 4+ A (Negative) ABG Interpretation ABG results: 09/19/25 22:05 VBG pH 7.37 VBG pCO2 30 L VBG pO2 111 H VBG Base Excess -6 L Quality Measures Quality Measures VTE prophylaxis (Heparin SQ) Medications Home Medications and Allergies Home Medications ?Medication ?Instructions ?Recorded ?Confirmed ?Type gabapentin 100 mg capsule 800 mg PO TID 02/15/1907/09 History albuterol sulfate 90 mcg/actuation 2 puff inhalation Q 4HR PRN Wheezing 08/19/22 07/09/25 History aerosol inhaler escitalopram oxalate 10 mg tablet 10 mg PO QDAY 07/09/25 History levothyroxine 25 mcg tablet 25 mcg PO QDAY 05/31/24 History pantoprazole 40 mg tablet,delayed 40 mg PO QDAY 07/09/25 History release amitriptyline 75 mg tablet 75 mg PO HS 06/01/24 History aspirin 81 mg tablet 81 mg PO QDAY 06/12/2407/09 History docusate sodium 100 mg capsule 100 mg PO BID 06/12/24 07/09/25 History (Colace) famotidine 40 mg tablet 40 mg PO QDAY 06/12/2407/09 History [id number]-other [id number] 1 cap PO BID 4 07/09/25 History oil 350 mg-400 mg capsule insulin degludec 100 unit/mL (3 30 unit subcut QHS 07/09/25 History mL) subcutaneous pen (Tresiba FlexTouch U-100 insulin) atorvastatin 80 mg tablet 80 mg PO HS 07/09/25 5 History meclizine 25 mg tablet 25 mg PO DAILY PRN dizziness 07/09/25 07/09/25 History meloxicam 7.5 mg tablet 7.5 mg PO DAILY 07/09/2507/25 History metoprolol succinate 50 mg 50 mg PO DAILY 07/09/2507/25 History tablet,extended release 24 hr tirzepatide 15 mg/0.5 mL 15 mg subcut QWEEK 07/09/25 07/09/25 History subcutaneous pen injector (Lee) Allergies Allergy/AdvReac Type Severity Reaction Status Date / Time ibuprofen Allergy Severe Gastrointestinal Verified 09/19/25 21:01 Upset Visit Medications Acetaminophen (Acetaminophen 325 Mg Tablet) 650 mg PO Q6H PRN PRN Reason: Fever >101.5 Stop: 10/20/25 04:50 Acetaminophen (Acetaminophen 325 Mg Tablet) 650 mg PO Q6H PRN PRN Reason: PAIN SCALE 1-3 (mild Stop: 10/20/25 04:50 Dextrose (Dextrose 50%-Water Inj 50 Ml Syringe) 25 ml IV PRNMRX1 PRN PRN Reason: Blood Sugar - Low Diphenhydramine HCl (Diphenhydramine Inj 50 Mg/Ml Vial) 25 mg IVP X1 ONE Stop: 09/20/25 04:55 Heparin Sodium (Porcine) (Heparin Sod Inj 5000 Unit/Ml Vial) 5,000 unit SC Q8HR [place] Stop: 10/04/25 05:59 Potassium Chloride (Kcl Ivpb) 10 meq in 100 mls @ 100 mls/hr IV .Q1H PRN PRN Reason: IF POTASSIUM LESS THAN 3.3 Stop: 10/20/25 04:37 Magnesium Sulfate (Magnesium Sulfate Ivpb) 2 gm in 50 mls @ 25 mls/hr IV .Q2H PRN PRN Reason: PER DKA PROTOCOL Stop: 10/20/25 04:37 Insulin Human Regular 100 unit (/ IV Miscellaneous Supplies) 100 mls @ 5.987 mls/hr IV .[id number] PRN; Protocol PRN Reason: PER PROTOCOL Stop: 10/20/25 04:37 Dextrose/Lactated Ringer's (D5-Lr) 1,000 mls @ 250 mls/hr IV .Q4H PRN PRN Reason: PER PROTOCOL Stop: 10/20/25 04:37 Lactated Ringer's (Lactated Ringers) 1,000 mls @ 250 mls/hr IV .Q4H PRN PRN Reason: PER PROTOCOL Stop: 09/21/25 04:37 Potassium Chloride 20 meq/ (Lactated Ringer's) 1,010 mls @ 250 mls/hr IV .Q4H3M PRN PRN Reason: K LEVEL 3.3 TO 5.3mM/L Stop: 10/20/25 04:37 Potassium Chloride 40 meq/ (Lactated Ringer's) 1,020 mls @ 250 mls/hr IV .Q4H5M PRN PRN Reason: K LEVEL < 3.3 mM/L Stop: 10/20/25 04:37 Potassium Chloride 40 meq/ (Dextrose/Lactated Ringer's) 1,020 mls @ 250 mls/hr IV .Q4H5M PRN PRN Reason: K LEVEL < 3.3mM/L Stop: 10/20/25 04:37 Potassium Cl/Dextrose/Lact Ringer's (Kcl 20 Meq/L In D5-Lr) 20 meq in 1,000 mls @ 250 mls/hr IV .Q4H PRN PRN Reason: K LEVEL 3.3 TO 5.3 mM/L Potassium Chloride (Kcl Ivpb) 10 meq in 100 mls @ 50 mls/hr IV PRN PRN PRN Reason: K LEVEL 3.3 to 5.3 & BG > 200 Stop: 10/20/25 04:37 Potassium Phosphate (Pot Phos 15 Mmol In Ns 250 Ml) 15 mmol in 250 mls @ 62.5 mls/hr IV PRN PRN PRN Reason: Phosphate <= 1mg/dL Stop: 10/20/25 04:37 Sodium Phosphate 15 mmol/ (Sodium Chloride) 255 mls @ 62.5 mls/hr IV .Q4H5M PRN PRN Reason: Phosphate <= 1mg/dL and K> than 5.3 Stop: 10/20/25 04:37 Magnesium Sulfate (Magnesium Sulfate Ivpb) 4 gm in 50 mls @ 12.5 mls/hr IV X1 ONE Stop: 09/20/25 08:54 Ondansetron HCl (Ondansetron Inj 2 Mg/Ml Inj 2 Ml) 4 mg IVP Q6H PRN; Protocol PRN Reason: NAUSEA OR VOMITING Stop: 10/20/25 04:50 Sennosides (Senna Tablet) 1 tab PO QDAY PRN; Protocol PRN Reason: constipation Stop: 10/20/25 04:50 Sodium Bicarbonate (Sodium Bicarb Inj 8.4% Syr 50 Ml Syringe) 50 ml IV Q4HR PRN PRN Reason: For ph <= to 7.0 Stop: 10/20/25 04:37 Discontinued Medications Sodium Chloride (Ns) 1,000 mls @ 999 mls/hr IV .Q1H1M ONE Stop: 09/19/25 22:16 Last Admin: 09/19/25 23:23 Dose: Not Given Lactated Ringer's (Lactated Ringers) 1,000 mls @ 999 mls/hr IV .Q1H1M ONE Stop: 09/19/25 23:04 Last Infusion: 09/20/25 00:54 Dose: Infused Sodium Chloride (Ns) 1,000 mls @ 999 mls/hr IV .Q1H1M ONE Stop: 09/20/25 04:00 Last Infusion: 09/20/25 04:30 Dose: Infused Metoclopramide HCl (Metoclopramide Inj 5 Mg/Ml Vial 2 Ml) 10 mg IVP X1 ONE; Protocol Stop: 09/20/25 02:29 Last Admin: 09/20/25 02:38 Dose: 10 mg Ondansetron HCl (Ondansetron Inj 2 Mg/Ml Inj 2 Ml) 4 mg IVP X1 ONE; Protocol Stop: 09/19/25 21:17 Last Admin: 09/19/25 23:22 Dose: 4 mg Assessment & Plan Plan This patient is a 59-year-old female with past medical history of insulin- dependent type 2 diabetes, diabetic neuropathy, hypothyroidism, hypertension, TMA presented to the ED on 09/20/2025 with worsening nausea and vomiting associate with dysuria. Admitted for DKA. Neuro #Acute encephalopathy In the setting of DKA and possible URI versus underlying depression Patient is confused alert but not oriented to time place and person. Patient does have a history of recurrent UTIs but urine was clean. Patient is at baseline alert and oriented x 3. Daughter was not present at the bedside. No focal neurological deficits noted. Patient presented with flulike symptoms, body aches and urinary frequency. Dx Chest x-ray showed no significant findings. Flu and COVID test were negative. Head CT was not taken as patient did not had any focal neurological deficit and was alert. No fall reported. Tx ? Continue with DKA protocol ? Added benzonatate as needed #Hx of Depression - Patient takes amitriptyline 75 mg at bedtime and escitalopram 10 mg daily. Rx -Continue patient's home medications once able to take p.o. CVS #Sinus Tachycardia - In the setting of DKA Rx -IV fluid resuscitation -Treating underlying DKA #Hx of Hypertension - Patient takes metoprolol succinate 50 mg XL Rx -Will start metoprolol XL 50 mg daily once patient is able to tolerate p.o. -Labetalol 10 mg every 6 as needed for SBP above 180 Rxx -Monitor vitals Respiratory #URI #Possible viral cough ? Patient presented with flulike symptoms cough and bodyaches. ? Clear breath sounds heard on auscultation no wheezing heard. ? Patient is saturating well on room air. Dx ? COVID-19 negative and flu test pending Rx ? Added benzonatate as needed Endo #DKA with intractable nausea vomiting #IDDM2 #Diabetic Neuropathy DDx: Possible noncompliance? Patient presented with nausea and vomiting associated with abdominal discomfort. Patient received 2 L bolus of fluids in the ED. Dx: -Blood glucose 414. Elevated BHB. VBG's showed pH 7.37, pCO2 30. Rx -Additional 1 L fluid given x 1. -DKA protocol with insulin drip - Replete electrolytes as necessary per DKA protocol Rxx - Labs every 4 hourly #Hypothyroidism Taking levothyroxine 25 mcg daily at home. Rx - Continue home dose levothyroxine once able to take p.o. meds Renal #Anion gap metabolic acidosis ? In the setting of DKA ? Anion gap 20 bicarb 18.2 -VBG's showed pH 7.37, pCO2 30. Rx -Continue DKA protocol Rx -Follow-up with renal panel every 4 hourly per DKA protocol #Lactic acidosis ? Lactic acid 3.2--> 3.9 Rx -IV fluid resuscitation and DKA management Rxx -Lactic acid Q3 hourly #Electrolyte disturbances #Hypercalcemia #Hypomagnesemia ? In the setting of dehydration Corrected calcium 10.3 Rx -IV fluids - Electrolyte repletion per DKA protocol Heme-onc #Leukocytosis likely reactive Dx -WBC 14.1. Rx -Continue with IV fluids - Daily labs - No signs of infection MSK #Hx of incontinence 2/ #Lumbar disc disease Rx -No active issue outpatient follow-up ID: No active issue ICU health-maintenance GI prophylaxis: Protonix 40 mg IV daily DVT prophylaxis: Heparin subcut every 8 hourly Lines: Peripheral Ventilator: None Hall catheter:Placed CODE STATUS: Full code ICU hospitalization: Patient is admitted for management of DKA. Plan of care discussed with attending physician, Dr. Stephane santos MD PGY-3
[2025-09-20] MEDS: RINGERS LACTATED 1000 ML 1,000 ML 999 ML IV (05:18)
[2025-09-20] MEDS: RINGERS LACTATED 1000 ML 1,000 ML 250 ML IV (05:18)
[2025-09-20] MEDS: INSULIN REG 100 UNITS/100 ML 100 UNIT in PRE-MIXED 1 BAG 5.987 UNIT IV (05:18)
[2025-09-20] MEDS: HEPARIN SOD INJ 5000 UNIT/ML VIAL SC ×3 (05:28→21:25)
[2025-09-20 05:29] LABS: Base Excess -8 (-3-3); HCO3 18 mEq/L (20-26); Inspired Oxygen, FIO2 21 %; O2 Saturation 76 % (91-98); PCO2 41 mmHg (32.0-48.0); pH, Arterial 7.26 (7.35-7.45)
[2025-09-20] MEDS: Magnesium Sulfate 2 GM Ivpb 2 GM/50 ML BAG IV (05:29)
[2025-09-20 05:35] LABS: PO2 47 mmHg (83-108)
[2025-09-20 05:36] LABS: Allen Test Performed/OK; Puncture Site Right Radial
--- NOTE | 2025-09-20 05:40 | PC.NURSE ---
CORRECTION ON THE ADMIN SITE OF THE INSULIN GTT, MAGNESIUM, AND LR. INSULING GTT IS IN THE 20 RIGHT WRIST, MAG AND LR IN THE 20 LEFT AC.
[2025-09-20 06:27] LABS: Strep A Rapid Negative (Negative)
[2025-09-20 06:28] LABS: Influenza A Ag Negative; Influenza B Ag Negative
[2025-09-20 06:40] LABS: Lactate (Lactic Acid) 1.3 mMol/L (0.4-2.0)
[2025-09-20 06:43] LABS: Basophils # (Auto) 0.0 Thou/mm3 (0.0-0.2); Basophils % (Auto) 0 % (0-2.5); Eosinophils # (Auto) 0.0 Thou/mm3 (0.0-0.5); Eosinophils % (Auto) 0 % (0-10); Hematocrit 39.9 % (36.0-46.0); Hemoglobin 13.1 g/dL (12.0-16.0); Immature Granulocytes Auto 0.05 Thou/mm3 (0.00-0.00); Lymphocytes # (Auto) 1.9 Thou/mm3 (1.0-4.8); Lymphocytes % (Auto) 13 % (10-50); Mean Corpuscular HGB Conc 32.8 g/dl (31.0-37.0); Mean Corpuscular Hemoglobin 32.2 pg (25.0-35.0); Mean Corpuscular Volume 98 fL (80-100); Monocytes # (Auto) 0.5 Thou/mm3 (0.0-0.8); Monocytes % (Auto) 4 % (0-12); Neutrophils # (Auto) 11.8 Thou/mm3 (1.8-7.7); Neutrophils % (Auto) 83 % (37-80); Nucleated Red Blood Cell # 0.00 Thou/mm3 (0.00-0.00); Nucleated Red Blood Cell % 0 /100 WBC (0); Platelet Count 270 Thou/mm3 (140-440); RDW Standard Deviation 46.8 fL (36.4-46.3); Red Blood Count 4.07 Miln/mm3 (4.00-5.20); White Blood Count 14.2 Thou/mm3 (3.6-11.0)
[2025-09-20 06:50] LABS: Beta Hydroxybutyrate 4.8 mmol/L (<0.6)
[2025-09-20 07:29] LABS: Alanine Aminotransferase 19 U/L (10-49); Albumin, Serum 4.2 gm/dL (3.4-4.8); Albumin/Globulin Ratio 1.8 (1.2-2.2); Alkaline Phosphatase 70 U/L (46-116); Anion Gap 17 (7-16); Aspartate Amino Transferase 15 U/L (0-34); BUN/Creatinine Ratio 13 Ratio (12-20); Bilirubin,Total 0.6 mg/dL (0.3-1.2); Blood Urea Nitrogen 9 mg/dL (9-23); Calcium 8.8 mg/dL (8.3-10.6); Calcium (Corrected) 8.8 mg/dL (8.5-10.1); Carbon Dioxide 17.7 mMol/L (20.0-31.0); Chloride 110 mMol/L (98-107); Creatinine (Component) 0.7 mg/dL (0.6-1.3); Estimated Creatinine Clearance 69.1 mL/min (>60); Globulin 2.3 gm/dL (2.3-3.5); Glucose 280 mg/dL (74-106); Glucose Estimated Average 355 mg/dL (80-131); Hemoglobin A1C > 14.0 % Hgb (4.8-6.0); Magnesium 1.9 mg/dL (1.6-2.6); Osmolality,Calculated 297 (275-295); Phosphorous 3.1 mg/dL (2.4-5.1); Potassium 4.1 mMol/L (3.4-5.1); Sodium 145 mMol/L (136-145); Thyroid Stimulating Hormone 2.18 uIU/mL (0.55-4.78); Total Protein 6.5 gm/dL (5.7-8.2); eGFR > 60 See Note
[2025-09-20] MEDS: cefTRIAXone 1,000 MG in SODIUM CHLORIDE 0.9% (Popper) 50 ML 100 MG IV (08:53)
[2025-09-20] MEDS: POT CHL ADDITIVE 20 MEQ in DEXTROSE 5%-LACTATED RINGERS 1,000 ML 250 MEQ IV (09:35)
[2025-09-20 09:57] LABS: Lactate (Lactic Acid) 0.8 mMol/L (0.4-2.0)
[2025-09-20 10:35] LABS: Albumin, Serum 3.7 gm/dL (3.4-4.8); Anion Gap 12 (7-16); BUN/Creatinine Ratio 13 Ratio (12-20); Blood Urea Nitrogen 8 mg/dL (9-23); Calcium 8.3 mg/dL (8.3-10.6); Calcium (Corrected) 8.5 mg/dL (8.5-10.1); Carbon Dioxide 23.3 mMol/L (20.0-31.0); Chloride 109 mMol/L (98-107); Creatinine (Component) 0.6 mg/dL (0.6-1.3); Estimated Creatinine Clearance 80.7 mL/min (>60); Glucose 120 mg/dL (74-106); Magnesium 1.6 mg/dL (1.6-2.6); Osmolality,Calculated 286 (275-295); Phosphorous 2.4 mg/dL (2.4-5.1); Potassium 4.0 mMol/L (3.4-5.1); Sodium 144 mMol/L (136-145); eGFR > 60 See Note
--- NOTE | 2025-09-20 11:06 | PD.RESPRO ---
Documentation for date of: 09/20/25 Subjective Subjective Interval history: This patient is a 59-year-old female with past medical history of insulin-dependent diabetes, diabetic neuropathy, hypothyroidism, hypertension, TMA presented to the ED on 09/20/2025 with chief complaint of worsening nausea and vomiting associated with dysuria per RN stated by daughter. Patient's daughter told the nurse that she has flulike symptoms characterized by fever/chills, nausea and generalized bodyaches from last few days. She also found to have urinary frequency and urgency. During my assessment, patient's daughter was not present at the bedside. Patient is confused although alert but not oriented to time place and person. She grimaced with pain on abdominal palpation. Limited history taking. Attempted to call daughter thrice but she did not answer the phone call and dropped a voice note. 09/20/2025: Patient was seen and examined at bedside this morning. No acute overnight events. Patient was able to tell me her name and where she was, but was not able to tell me the year. Patient did not appear to be having any significant abdominal pain and pupils were sluggishly responsive to light, but otherwise benign physical exam. Per patient's nurse the daughter has stated that previously she had an episode where she was confused and was secondary to UTI. Was also noted that patient was on metformin previously and she did come with lactic acidosis therefore metformin should be discontinued upon discharge. UA was positive for bacteria therefore start Rocephin. Otherwise patient's anion gap has closed once therefore we will transition to subcu with degludec 15 units daily and 5 units of insulin lispro 3 times daily with meals and sliding scale on top. Will likely downgrade later on the afternoon. Exam Vital Signs Temp Pulse Resp BP Pulse Ox O2 Del Method 97.7 F 102 H 24 H 127/61 95 Room Air 09/20/25 08:45 09/20/25 11:00 09/20/25 11:00 09/20/25 11:00 09/20/25 11:09/20/25 09:30 Narrative Exam Gen: A&O X 2 (not to time), NAD HEENT: NCAT, EOMI, Pupils sluggish, but reactive NAIN, not icteric. External ears normal. No rhinorrhea. Moist mucous membranes. Neck: Supple, full range of motion, no observable masses, No meningeal sign. Lungs: No Respiratory distress, clear bilateral. CV: RRR, no murmurs. Abdomen: Soft, nondistended, No rebound tenderness. MSK: No joint swelling, no redness, peripheral pulses presents, no peripheral edema. Skin: No rashes, petechiae, lesions. Neuro: No focal neurological deficits appreciated, sensory and motor intact. Psych: Cooperative, appropriate mood and effect. Objective Labs 09/21/25 05:23 09/20/25 17:07 Labs: Laboratory Results - last 24 hr 09/19/25 09/19/25 09/20/25 21:23 22:05 02:13 WBC 14.1 H RBC 4.88 Hgb 15.3 Hct 46.7 H MCV 96 MCH 31.4 MCHC 32.8 RDW Std Deviation 46.0 Plt Count 311 Neut % (Auto) 74 Lymph % (Auto) 21 Rincon % (Auto) 4 Eos % (Auto) 0 Baso % (Auto) 1 Neut # (Auto) 10.4 H Lymph # (Auto) 2.9 Rincon # (Auto) 0.6 Eos # (Auto) 0.0 Baso # (Auto) 0.1 Immature Gran # (Auto) 0.05 H Absolute Nucleated RBC 0.00 Immature Gran % 0 Nucleated RBC % 0 Puncture Site ABG pH ABG pCO2 ABG pO2 ABG HCO3 ABG O2 Saturation ABG Base Excess VBG pH 7.37 VBG pCO2 30 L VBG pO2 111 H VBG O2 Sat (Delvin) 96 VBG Base Excess -6 L FiO2 Sodium 142 Potassium 4.7 Chloride 104 Carbon Dioxide 18.2 L Anion Gap 20 H BUN 11 Creatinine 0.9 Estim Creat Clear Calc 53.8 L eGFR > 60 BUN/Creatinine Ratio 12 Glucose 414 H* Estimated Ave Glu mg/dL Hemoglobin A1c Calculated Osmolality 300 H Lactic Acid 3.2 H 3.9 H Calcium 10.3 Corrected Calcium 10.3 H Phosphorus 4.9 Magnesium 1.6 Total Bilirubin 0.7 AST 18 ALT 27 Alkaline Phosphatase 88 Total Protein 8.1 Albumin 4.8 Globulin 3.3 Albumin/Globulin Ratio 1.5 Lipase 23 Beta-Hydroxybutyrate/Acetoacetate 4.2 H Procalcitonin 0.07 TSH Ur Collection Type Voided Urine Color Lt-Yellow Urine Clarity Clear Urine pH 5.5 Ur Specific [place] 1.037 H Urine Protein Negative Urine Glucose (UA) 4+ A Urine Ketones 3+ A Urine Blood Negative Urine Nitrite Negative Urine Bilirubin Negative Urine Urobilinogen (Auto) Negative Ur Leukocyte Esterase Negative Urine RBC 17 H Urine WBC 2 Ur Squamous Epith Cells 8 H Urine Bacteria Rare Ur Culture Indicated? Not Indicated Influenza A (Rapid) Influenza B (Rapid) Group A Strep Rapid 09/20/25 09/20/25 09/20/25 05:03 05:21 05:40 WBC RBC Hgb Hct MCV MCH MCHC RDW Std Deviation Plt Count Neut % (Auto) Lymph % (Auto) Rin[place] % (Auto) Eos % (Auto) Baso % (Auto) Neut # (Auto) Lymph # (Auto) R[place]con # (Auto) Eos # (Auto) Baso # (Auto) Immature Gran # (Auto) Absolute Nucleated RBC Immature Gran % Nucleated RBC % Puncture Site Right Radial ABG pH 7.26 L ABG pCO2 41 ABG pO2 47 L* ABG HCO3 18 L ABG O2 Saturation 76 L ABG Base Excess -8 L VBG pH VBG pCO2 VBG pO2 VBG O2 Sat (Delvin) VBG Base Excess FiO2 21 Sodium Potassium Chloride Carbon Dioxide Anion Gap BUN Creatinine Estim Creat Clear Calc eGFR BUN/Creatinine Ratio Glucose Estimated Ave Glu mg/dL Hemoglobin A1c Calculated Osmolality Lactic Acid Calcium Corrected Calcium Phosphorus Magnesium Total Bilirubin AST ALT Alkaline Phosphatase Total Protein Albumin Globulin Albumin/Globulin Ratio Lipase Beta-Hydroxybutyrate/Acetoacetate Procalcitonin TSH Ur Collection Type Urine Color Urine Clarity Urine pH Ur Specific [place] Urine Protein Urine Glucose (UA) Urine Ketones Urine Blood Urine Nitrite Urine Bilirubin Urine Urobilinogen (Auto) Ur Leukocyte Esterase Urine RBC Urine WBC Ur Squamous Epith Cells Urine Bacteria Ur Culture Indicated? Influenza A (Rapid) Negative Influenza B (Rapid) Negative Group A Strep Rapid Negative 09/20/25 09/20/25 06:33 09:44 WBC 14.2 H RBC 4.07 Hgb 13.1 D Hct 39.9 MCV 98 MCH 32.2 MCHC 32.8 RDW Std Deviation 46.8 H Plt Count 270 D Neut % (Auto) 83 H Lymph % (Auto) 13 R[place] % (Auto) 4 Eos % (Auto) 0 Baso % (Auto) 0 Neut # (Auto) 11.8 H Lymph # (Auto) 1.9 [place]con # (Auto) 0.5 Eos # (Auto) 0.0 Baso # (Auto) 0.0 Immature Gran # (Auto) 0.05 H Absolute Nucleated RBC 0.00 Immature Gran % 0 Nucleated RBC % 0 Puncture Site ABG pH ABG pCO2 ABG pO2 ABG HCO3 ABG O2 Saturation ABG Base Excess VBG pH VBG pCO2 VBG pO2 VBG O2 Sat (Delvin) VBG Base Excess FiO2 Sodium 145 144 Potassium 4.1 D 4.0 Chloride 110 H 109 H Carbon Dioxide 17.7 L 23.3 Anion Gap 17 H 12 BUN 9 8 L Creatinine 0.7 0.6 Estim Creat Clear Calc 69.1 80.7 eGFR > 60 > 60 BUN/Creatinine Ratio 13 13 Glucose 280 H D [address] Glu mg/dL 355 H Hemoglobin A1c > 14.0 H Calculated Osmolality 297 H 286 Lactic Acid 1.3 0.8 Calcium 8.8 D 8.3 Corrected Calcium 8.8 D 8.5 Phosphorus 3.1 2.4 Magnesium 1.9 1.6 Total Bilirubin 0.6 AST 15 ALT 19 Alkaline Phosphatase 70 D Total Protein 6.5 Albumin 4.2 D 3.7 D Globulin 2.3 Albumin/Globulin Ratio 1.8 Lipase Beta-Hydroxybutyrate/Acetoacetate 4.8 H Procalcitonin TSH 2.18 Ur Collection Type Urine Color Urine Clarity Urine pH Ur Specific [place] Urine Protein Urine Glucose (UA) Urine Ketones Urine Blood Urine Nitrite Urine Bilirubin Urine Urobilinogen (Auto) Ur Leukocyte Esterase Urine RBC Urine WBC Ur Squamous Epith Cells Urine Bacteria Ur Culture Indicated? Influenza A (Rapid) Influenza B (Rapid) Group A Strep Rapid ABG Interpretation ABG results: 09/19/25 09/20/25 22:05 05:21 ABG pH 7.26 L ABG pCO2 41 ABG pO2 47 L* ABG HCO3 18 L ABG O2 Saturation 76 L ABG Base Excess -8 L VBG pH 7.37 VBG pCO2 30 L VBG pO2 111 H VBG Base Excess -6 L Quality Measures Quality Measures VTE prophylaxis (Heparin SQ) Assessment & Plan Assessment Current Active Medications: Generic Name Dose Route Start Last Admin Trade Name Freq PRN Reason Stop Dose Admin Acetaminophen 650 mg 09/20/25 04:51 Acetaminophen 325 Mg Tablet PO 10/20/25 04:50 Q6H PRN Fever >101.5 Acetaminophen 650 mg 09/20/25 04:51 Acetaminophen 325 Mg Tablet PO 10/20/25 04:50 Q6H PRN PAIN SCALE 1-3 (mild Albuterol/Ipratropium 3 ml 09/20/25 05:36 Albuterol/Ipratropium (Duoneb) Rt Carol 3 Ml Nebu INH 10/20/25 05:35 Q4HR PRN SHORTNESS OF BREATH OR WHEEZE Benzonatate 200 mg 09/20/25 05:30 Benzonatate 100 Mg Capsule PO 10/20/25 05:29 Q8HR PRN COUGH Protocol Dextrose 25 ml 09/20/25 04:38 Dextrose 50%-Water Inj 50 Ml Syringe IV [id number] PRN Blood Sugar - Low Heparin Sodium (Porcine) 5,000 unit 09/20/25 06:00 09/20/25 05:28 Heparin Sod Inj 5000 Unit/Ml Vial SC 10/04/25 05:59 5,000 unit Q8HR GEORGES Administration Potassium Chloride 10 meq in 100 mls @ 100 mls/hr 09/20/25 04:38 Kcl Ivpb IV 10/20/25 04:37 .Q1H PRN IF POTASSIUM LESS THAN 3.3 Magnesium Sulfate 2 gm in 50 mls @ 25 mls/hr 09/20/25 04:38 09/20/25 07:21 Magnesium Sulfate Ivpb IV 10/20/25 04:37 Infused .Q2H PRN Infusion PER DKA PROTOCOL Insulin Human Regular 100 unit 100 mls @ 5.987 mls/hr 09/20/25 04:38 09/20/25 08:39 / IV Miscellaneous Supplies IV 10/20/25 04:37 0.025 unit/kg/hr .[id number] PRN 1.497 mls/hr PER PROTOCOL Titration Protocol 0.1 UNIT/KG/HR Dextrose/Lactated Ringer's 1,000 mls @ 250 mls/hr 09/20/25 04:38 D5-Lr IV 10/20/25 04:37 .Q4H PRN PER PROTOCOL Lactated Ringer's 1,000 mls @ 250 mls/hr 09/20/25 04:38 09/20/25 05:18 Lactated Ringers IV 09/21/25 04:37 250 mls/hr .Q4H PRN Administration PER PROTOCOL Potassium Chloride 20 meq/ 1,010 mls @ 250 mls/hr 09/20/25 04:38 Lactated Ringer's IV 10/20/25 04:37 .Q4H3M PRN K LEVEL 3.3 TO 5.3mM/L Potassium Chloride 40 meq/ 1,020 mls @ 250 mls/hr 09/20/25 04:38 Lactated Ringer's IV 10/20/25 04:37 .Q4H5M PRN K LEVEL < 3.3 mM/L Potassium Chloride 40 meq/ 1,020 mls @ 250 mls/hr 09/20/25 04:38 Dextrose/Lactated Ringer's IV 10/20/25 04:37 .Q4H5M PRN K LEVEL < 3.3mM/L Potassium Chloride 10 meq in 100 mls @ 50 mls/hr 09/20/25 04:38 Kcl Ivpb IV 10/20/25 04:37 PRN PRN K LEVEL 3.3 to 5.3 & BG > 200 Potassium Phosphate 15 mmol in 250 mls @ 62.5 mls/hr 09/20/25 04:38 Pot Phos 15 Mmol In Ns 250 Ml IV 10/20/25 04:37 PRN PRN Phosphate <= 1mg/dL Sodium Phosphate 15 mmol/ 255 mls @ 62.5 mls/hr 09/20/25 04:38 Sodium Chloride IV 10/20/25 04:37 .Q4H5M PRN Phosphate <= 1mg/dL and K> than 5.3 Ceftriaxone Sodium 1,000 mg/ 50 mls @ 100 mls/hr 09/20/25 09:00 09/20/25 08:53 Sodium Chloride IV 09/27/25 08:59 100 mls/hr QDAY GEORGES Administration Protocol Potassium Chloride 20 meq/ 1,010 mls @ 250 mls/hr 09/20/25 09:09 09/20/25 09:35 Dextrose/Lactated Ringer's IV 10/20/25 09:06 250 mls/hr .Q4H3M PRN Administration K LEVEL 3.3 TO 5.3 mM/L Ondansetron HCl 4 mg 09/20/25 04:51 Ondansetron Inj 2 Mg/Ml Inj 2 Ml IVP 10/20/25 04:50 Q6H PRN NAUSEA OR VOMITING Protocol Pantoprazole Sodium 40 mg 09/20/25 09:00 09/20/25 08:53 Pantoprazole Inj 40 Mg Vial IVP 10/20/25 08:59 40 mg QDAY GEORGES Administration Sennosides 1 tab 09/20/25 04:51 Senna Tablet PO 10/20/25 04:50 QDAY PRN constipation Protocol Sodium Bicarbonate 50 ml 09/20/25 04:38 Sodium Bicarb Inj 8.4% Syr 50 Ml Syringe IV 10/20/25 04:37 Q4HR PRN For ph <= to 7.0 Plan This patient is a 59-year-old female with past medical history of insulin-dependent type 2 diabetes, diabetic neuropathy, hypothyroidism, hypertension, TMA presented to the ED on 09/20/2025 with worsening nausea and vomiting associate with dysuria. Admitted for DKA. Neuro #Acute encephalopathy In the setting of DKA and UTI A/O x2 (not time) Patient is at baseline alert and oriented x 3. Daughter was not present at the bedside. No focal neurological deficits noted. UA positive for bacteria Chest x-ray showed no significant findings. Flu and COVID test were negative. Head CT was not taken as patient did not had any focal neurological deficit and was alert. No fall reported. Tx ? Continue treating DKA ? Treat underlying infection #Hx of Depression - Patient takes amitriptyline 75 mg at bedtime and escitalopram 10 mg daily. Rx -Continue patient's home medications once able to take p.o. CVS #Sinus Tachycardia - In the setting of DKA Rx -IV fluid resuscitation -Treating underlying DKA #Hx of Hypertension - Patient takes metoprolol succinate 50 mg XL Rx -Will start metoprolol XL 50 mg daily if BP allows once patient is able to tolerate p.o. -Labetalol 10 mg every 6 as needed for SBP above 180 Rxx -Monitor vitals Respiratory #Past smoker #Cough ? Clear breath sounds heard on auscultation no wheezing heard. ? Patient is saturating well on room air. ? COVID-19 negative and flu test negative Rx ? On benzonatate as needed Endo #DKA with intractable nausea vomiting, resolved #IDDM2 #Diabetic Neuropathy DDx: Possible noncompliance? Patient presented with nausea and vomiting associated with abdominal discomfort. Patient received 2 L bolus of fluids in the ED. AG closed twice therefore off insulin drip Dx: -Blood glucose 414. Elevated BHB. VBG's showed pH 7.37, pCO2 30. Rx Transitioned to degludec 15 unit qday Lispro 5 unit TIDWM ISS Hypoglycemia protocol ordered Rxx - F/U daily CMP #Hypothyroidism Taking levothyroxine 25 mcg daily at home. Rx - Continue home dose levothyroxine once able to take p.o. meds Renal #Anion gap metabolic acidosis, resolved #Lactic acidosis, resolved ? Lactic acid 3.2--> 3.9--> 0.9 Likely 2/2 metformin Tx: Discontinue metformin on discharge #Electrolyte disturbances #Hypercalcemia, resolved #Hypomagnesemia, resolved Heme-onc #Leukocytosis likely reactive Dx -WBC 14.1 --14.2 Possible reactive vs in setting of UTI Rx -Continue with IV fluids - Rocephin for UTI - Daily labs MSK #Hx of incontinence 2/2 #Lumbar disc disease Rx -No active issue outpatient follow-up ID: #[id number] UA positive for bacteria and in the setting of encephalopathy will treat Plan: Ceftriaxone qday Follow up on culture ICU health-maintenance GI prophylaxis: Protonix 40 mg IV daily DVT prophylaxis: Heparin subcut every 8 hourly Lines: Peripheral Ventilator: None Hall catheter:Placed CODE STATUS: Full code ICU hospitalization: Patient will likely be downgraded later this evening Plan of care discussed with attending physician, Dr. Sreekanth Saldaña PGY2 Attending Provider Attestation/Addendum pt seen and examined, d/w residents agree with above. in brief this is a 59yo F admitted for DKA and started on insulin gtt and DKA protocol. She improved and insulin gtt was stopped and she was transitioned to subq insulin. she is tolerating PO and stable for downgrade case d/w ICU team labs, imaging , records reviewed ~35min required for eval, exam, review, intervention, discussion and formulation of POC for this pt
--- NOTE | 2025-09-20 11:28 | PC.NURSE ---
pt admitted this morning from ED, called daughter Preethi via telephone to obtain pt PMH and MEdiction list. PER daughter doesn't know exact home medications. pt currently sleepy and confused. unable to obtain actual Home med list at this time.
[2025-09-20 12:54] LABS: Lactate (Lactic Acid) 1.6 mMol/L (0.4-2.0)
[2025-09-20 13:15] LABS: Albumin, Serum 3.6 gm/dL (3.4-4.8); Anion Gap 11 (7-16); BUN/Creatinine Ratio 7 Ratio (12-20); Blood Urea Nitrogen < 5 mg/dL (9-23); Calcium 8.1 mg/dL (8.3-10.6); Calcium (Corrected) 8.4 mg/dL (8.5-10.1); Carbon Dioxide 21.3 mMol/L (20.0-31.0); Chloride 110 mMol/L (98-107); Creatinine (Component) 0.7 mg/dL (0.6-1.3); Estimated Creatinine Clearance 67.3 mL/min (>60); Glucose 227 mg/dL (74-106); Magnesium 1.6 mg/dL (1.6-2.6); Osmolality,Calculated 287 (275-295); Phosphorous 2.2 mg/dL (2.4-5.1); Potassium 4.9 mMol/L (3.4-5.1); Sodium 142 mMol/L (136-145); eGFR > 60 See Note
[2025-09-20] MEDS: INSULIN DEGLUDEC 5 UNIT/0.05 ML (PER 5 UNITS) 15 UNIT SC (13:53)
--- NOTE | 2025-09-20 15:14 | PC.NURSE ---
Patient accidentally pulled out 2nd IV, onlky has one IV. MD Soto made aware
[2025-09-20 15:44] LABS: Collection Type, Urine Clean Catch
[2025-09-20 15:50] LABS: Bilirubin,Urine Negative (Negative); Blood,Urine 1+ (Negative); Clarity,Urine Clear (Clear/Hazy); Color,Urine Lt-Yellow (Lt Yel-Yel); Culture Indicated,Urine Not Indicated; Glucose, Urine 3+ (Negative); Ketones,Urine 2+ (Negative); Leukocyte Esterase,Urine Positive (Negative); Nitrite,Urine Negative (Negative); PH,Urine 5.5 (5.0-7.0); Protein,Urine Trace (Neg - Trace); RBC,Urine 4 /hpf (0-3); Specific Gravity,Urine 1.018 (1.001-1.035); Squamous Epithelial Cell,Urine 2 /hpf (0-5); Urobilinogen,Urine Negative mg/dL (0.0-1.0); WBC,Urine 9 /hpf (0-5)
[2025-09-20 16:09] LABS: Amphetamine/Methamp Scrn,U Negative (Negative); Barbiturate Screen,Urine Negative (Negative); Benzodiazepines Screen,Urine Negative (Negative); Benzoylecgonine Screen, Ur Negative (Negative); Fentanyl Screen,Urine Negative (Negative); Opiate Screen,Urine Negative (Negative); THC Screen,Urine Positive (Negative)
[2025-09-20 17:35] LABS: Lactate (Lactic Acid) 0.8 mMol/L (0.4-2.0)
[2025-09-20 18:20] LABS: Albumin, Serum 3.8 gm/dL (3.4-4.8); Anion Gap 11 (7-16); BUN/Creatinine Ratio 12 Ratio (12-20); Blood Urea Nitrogen 7 mg/dL (9-23); Calcium 8.4 mg/dL (8.3-10.6); Calcium (Corrected) 8.6 mg/dL (8.5-10.1); Carbon Dioxide 24.0 mMol/L (20.0-31.0); Chloride 107 mMol/L (98-107); Creatinine (Component) 0.6 mg/dL (0.6-1.3); Estimated Creatinine Clearance 78.5 mL/min (>60); Glucose 171 mg/dL (74-106); Magnesium 1.6 mg/dL (1.6-2.6); Osmolality,Calculated 285 (275-295); Phosphorous 2.4 mg/dL (2.4-5.1); Potassium 4.2 mMol/L (3.4-5.1); Sodium 142 mMol/L (136-145); eGFR > 60 See Note
[2025-09-20] MEDS: ACETAMINOPHEN 325 MG TABLET 650 MG PO (19:21)
--- NOTE | 2025-09-20 19:46 | PD.RESEVENT ---
Documentation for date of: 09/20/25 Event Note Event Note: pt downgraded from icu today to floors. UTI, on Ceftriaxone DKA resolved, pt A&Ox2 per ICU team Plan discussed with my attending Dr. Elli Cabezas MD PGY1
[2025-09-21] VITALS: BP 123/66; PULSE 74; PULSE 82; RESP 18; TEMP 36.9; O2SAT 95
[2025-09-21 00:32] VITALS: PULSE 102; RESP 19; RESP 96
--- NOTE | 2025-09-21 00:34 | PC.NURSE ---
spoke to dr nuñez regarding patient complaining of 6/10 headache but tylenol is not due for another hour. Per dr nuñez give tylenol early now.
[2025-09-21] MEDS: ACETAMINOPHEN 325 MG TABLET 650 MG PO ×2 (00:36→07:42)
[2025-09-21 04:00] VITALS: BP 124/71; PULSE 74; PULSE 96; RESP 18; TEMP 36.6; O2SAT 96
[2025-09-21] MEDS: HEPARIN SOD INJ 5000 UNIT/ML VIAL SC (05:19)
[2025-09-21 06:00] VITALS: BMI 27.1
[2025-09-21 06:01] LABS: Beta Hydroxybutyrate 1.9 mmol/L (<0.6)
[2025-09-21 06:06] LABS: Basophils # (Auto) 0.1 Thou/mm3 (0.0-0.2); Basophils % (Auto) 1 % (0-2.5); Eosinophils # (Auto) 0.0 Thou/mm3 (0.0-0.5); Eosinophils % (Auto) 0 % (0-10); Hematocrit 40.5 % (36.0-46.0); Hemoglobin 13.4 g/dL (12.0-16.0); Immature Granulocytes Auto 0.04 Thou/mm3 (0.00-0.00); Lymphocytes # (Auto) 3.1 Thou/mm3 (1.0-4.8); Lymphocytes % (Auto) 28 % (10-50); Mean Corpuscular HGB Conc 33.1 g/dl (31.0-37.0); Mean Corpuscular Hemoglobin 31.7 pg (25.0-35.0); Mean Corpuscular Volume 96 fL (80-100); Monocytes # (Auto) 0.6 Thou/mm3 (0.0-0.8); Monocytes % (Auto) 6 % (0-12); Neutrophils # (Auto) 7.2 Thou/mm3 (1.8-7.7); Neutrophils % (Auto) 65 % (37-80); Nucleated Red Blood Cell # 0.00 Thou/mm3 (0.00-0.00); Nucleated Red Blood Cell % 0 /100 WBC (0); Platelet Count 270 Thou/mm3 (140-440); RDW Standard Deviation 46.7 fL (36.4-46.3); Red Blood Count 4.23 Miln/mm3 (4.00-5.20); White Blood Count 11.1 Thou/mm3 (3.6-11.0)
--- NOTE | 2025-09-21 06:12 | PC.NURSE ---
Attempted to do med rec patient is uncooperative and states her daughter can call later when she wakes up to answer questions.
[2025-09-21 06:15] LABS: INR 1.0 (0.9-1.3); Partial Thromboplastin Time 29.3 Seconds (22.0-36.0); Prothrombin Time 11.0 Seconds (9.0-12.2)
[2025-09-21] MEDS: INSULIN LISPRO (AdmeLOG) 1 UNIT/0.01 ML UNIT 5 UNIT SC (07:33)
[2025-09-21] MEDS: INSULIN LISPRO (AdmeLOG) 1 UNIT/0.01 ML UNIT SC (07:34)
[2025-09-21 08:00] VITALS: BP 123/74; PULSE 100; PULSE 92; RESP 16; TEMP 36.7; O2SAT 97
[2025-09-21] MEDS: cefTRIAXone 1,000 MG in SODIUM CHLORIDE 0.9% (Popper) 50 ML 100 MG IV (08:20)
[2025-09-21] MEDS: INSULIN DEGLUDEC 5 UNIT/0.05 ML (PER 5 UNITS) 15 UNIT SC (08:21)
[2025-09-21 08:23] VITALS: PULSE 96; RESP 18; RESP 92
--- NOTE | 2025-09-21 10:05 | ESDS_ITS ---
<Statement entered by Nehemias Calloway MD - 10/01/25 08:32> I reviewed above note and agree with findings and plans. I have also personally examined the patient with medicine team and went over assessment and plan with medical team including internal sales engineer and resident physician. Planned Discharge Date 09/21/25 DS: Providers Provider Date of admission: 09/20/25 05:05 Primary care physician: Farida Duke), RETAIL ANALYTICS MANAGER Admitting Provider: Barrie Calderón MD Attending Provider on Admission: Barrie Calderón MD Consults: 09/20/25 04:38 Referral Registered Dietitian Routine Comment: Attending Provider on DC: Tato Calloway MD Discharging Provider: Tato Calloway MD DS: Diagnosis Problem List Completed Was Problem List Reviewed/Reconciled?: Yes Hospital Course Hospital Course Hospital course: Hospital Course Ms Hughes a 59-year-old female with past medical history of insulin-dependent diabetes, diabetic neuropathy, hypothyroidism, hypertension, TMA presented to the ED on 09/20/2025 with chief complaint of worsening nausea and vomiting associated with dysuria per RN stated by daughter. She was admitted to the ICU for DKA. Patient recieved IV fluids and insulin and her symptoms resolved. DKA resolved and pt was downgraded from ICU to floors. Pt was found to have UTI and was treated with IV ceftriaxone. Patient was hemodynamically stable, labs were reviewed, patient denies any shortness of breath and is saturating >94% on RA, is able to ambulate per his baseline without assistance deemed stable and medically cleared for discharge Diagnoses Acute encephalopathy in setting of dka- resolved DKA- resolved DM HTN hx of Tobacco Use disorder HLD Diabetic neuropathy Lumbar disc disease depression Discharge instructions -You are being treated for a UTI, please complete the course of antibiotics Keflex 500 mg twice a day for 4 more days. -Follow up with PCP within 1 week of discharge, if you do not have a primary care physician you can come see us at the [facility] by calling [phone] -Continue rest of medications as previously prescribed -Return to the ED or call EMS if symptoms return and/or worsen Plan discussed with my attending Dr. Elli Cabezas MD PGY1 Time Spent with Patient Time attestation: Total time spent providing and/or coordinating discharge services: Time spent: Greater than 30 minutes Exam Vital Signs Temp Pulse Resp BP Pulse Ox O2 Del Method 98.1 F 96 18 123/74 97 Room Air 09/21/25 08:00 09/21/25 08:23 09/21/25 08:23 09/21/25 08:00 09/21/25 08:00 09/21/25 08:00 Narrative Exam GENERAL: no acute distress, comfortably laying in bed HEENT: Head AT/ NC. Mucous membranes moist. PERRL. NECK: Supple, no lymphadenopathy, no carotid bruits. CARDIOVASCULAR: RRR. Normal S1/S2, No m/r/g. No pitting edema of bilateral LEs. RESPIRATORY: CTAB. No wheezing, rhonchi, crackles. GASTROINTESTINAL: Abdomen soft, non tender no palpable masses. Bowel sounds present MUSCULOSKELETAL:? No cyanosis or edema, no visible joint swelling. NEUROLOGICAL: CN II-XII grossly intact. No focal deficits. Sensation intact, symmetric. PSYCHIATRIC: Awake and alert, not agitated, normal mood and affect. SKIN: No obvious rashes, no jaundice, normal turgor. Discharge Plan Plan Patient Disposition: HOME (Self Care) Patient condition on transfer: Stable Care Plan Goals: -You are being treated for a UTI, please complete the course of antibiotics Keflex 500 mg twice a day for 4 more days. -Follow up with PCP within 1 week of discharge, if you do not have a primary care physician you can come see us at the [facility] by calling [phone] -Continue rest of medications as previously prescribed -Return to the ED or call EMS if symptoms return and/or worsen Prescriptions/Referrals Prescriptions/Med Rec: New cephalexin 500 mg capsule 500 mg PO BID 4 Days Qty: 8 0RF Continued insulin degludec [Tresiba FlexTouch U-100] 100 unit/mL (3 mL) insulin pen 30 unit subcut QHS gabapentin 100 mg Capsule 800 mg PO TID famotidine 40 mg Tablet 40 mg PO QDAY docusate sodium [Colace] 100 mg Capsule 100 mg PO BID aspirin 81 mg Tablet 81 mg PO QDAY [id number] oil 350-400 mg Capsule 1 cap PO BID albuterol sulfate 90 mcg/actuation HFA aerosol inhaler 2 puff INHALATION Q4HR PRN (Reason: Wheezing) levothyroxine 25 mcg Tablet 25 mcg PO QDAY pantoprazole 40 mg Tablet,Delayed Release (Dr/Ec) 40 mg PO QDAY escitalopram oxalate 10 mg Tablet 10 mg PO QDAY amitriptyline 75 mg tablet 75 mg PO HS metoprolol succinate 50 mg tablet extended release 24 hr 50 mg PO DAILY meclizine 25 mg tablet 25 mg PO DAILY PRN (Reason: dizziness) atorvastatin 80 mg tablet 80 mg PO HS meloxicam 7.5 mg tablet 7.5 mg PO DAILY Mounjaro 15 mg/0.5 mL pen injector 15 mg subcut QWEEK aspirin 81 mg tablet,delayed release (DR/EC) PO DAILY metformin 1,000 mg tablet PO BID Referrals: [facility]),LALO Iqbal [Primary Care Provider] Patient/Caregiver Discharge Instructions Print Language: Finnish Stand Alone Forms: Pratima Award Info., Patient Portal Info Letter Discharge Order Discharge Orders: Discharge (Routine); Ordered 09/21/25 Ordered By: Fern Cabezas Quality Discharge Quality Measures VTE prophylaxis
[2025-09-21 12:00] VITALS: BP 126/76; PULSE 88; PULSE 96; RESP 17; TEMP 36.7; O2SAT 96
--- NOTE | 2025-09-21 13:52 | PC.SS ---
Philly Hughes is a 59-year-old female admitted to Med Surg for DKA. SS conducted bedside contact with the patient to complete initial assessment and to discuss discharge planning. Role and reason explained. Patient confirmed demographic information. Patient identifies dtr Preethijonathon Seniorz [phone] as her surrogate decision maker. Pt states she is able to complete all ADL?s independently, uses a rollator walker. Dtr is her SS worker. Pts PCP is Dr. Benavides. Pharmacy of choice [facility]. Discharge options discussed and the pt wishes to return home.? Family will provide transportation upon DC. No further intervention required at this time, rn social work would be available to address any further concerns. DC Plan: Home Contact: Preethi Abraham Address: Confirmed on face sheet PCP: [facility]
== END 2025-09-21 13:33 | disposition home or self-care (01) | DRG 420 ==
LOC: SERX 09-20 04:55 → SERHOLD 09-20 05:06 → S2SX 09-20 08:12 → S3NX 09-20 20:08
PROVIDERS: Physician Assistant; Student in an Organized Health Care Education/Training Program; Admitting Provider Internal Medicine; Emergency Provider Emergency Medicine; PCP Registered Nurse Community Health; Visit Provider Internal Medicine
DX: E11.10 Type 2 diabetes mellitus with ketoacidosis without coma (principal); K21.9 Gastro-esophageal reflux disease without esophagitis; I10 Essential (primary) hypertension; E03.9 Hypothyroidism, unspecified; E11.42 Type 2 diabetes mellitus with diabetic polyneuropathy; G93.40 Encephalopathy, unspecified; F32.A Depression, unspecified; R00.0 Tachycardia, unspecified; J06.9 Acute upper respiratory infection, unspecified; M51.9 Unspecified thoracic, thoracolumbar and lumbosacral intervertebral disc disorder; E86.0 Dehydration; E83.42 Hypomagnesemia; J45.909 Unspecified asthma, uncomplicated; E83.52 Hypercalcemia; M79.7 Fibromyalgia; N39.0 Urinary tract infection, site not specified; Z79.4 Long term (current) use of insulin; Z79.890 Hormone replacement therapy; Z87.440 Personal history of urinary (tract) infections; Z87.891 Personal history of nicotine dependence
CPT/HCPCS: 36415; 36600; 51702; 71045; 80053; 80069; 80307; 81001; 82010; 82803; 83036; 83605; 83690; 83735; 84100; 84145; 84443; 85025; 85610; 85730; 87040; 87081; 87086; 87502; 87635; 87651; 93225; 96361; 96365; 96366; 96374; 96375; 99284; A4314; J0696; J1200; J1644; J1815; J2405; J2470; J2765; J3475; J3480; J7030; J7050; J7120; J7121; A9270